=== PATIENT | male | born 1995 ===

== ENCOUNTER 2023-01-30 12:04 | Outpatient (REF) | payer MEDICAID, SELFPAY ==
[2023-01-30 13:50] LABS: Estimated Average Glucose 103 mg/dL; Hemoglobin A1c % 5.2 % (<6.0)
[2023-01-30 14:20] LABS: Anion Gap 13 (12-20); Blood Urea Nitrogen 11 mg/dL (9-16); Calcium 10.1 mg/dL (8.4-10.2); Carbon Dioxide 26 mmol/L (22-29); Chloride 106 mmol/L (96-108); Estimated Glomerular Filt Rate > 60; Glucose Random 91 mg/dL (60-115); Potassium 4.3 mmol/L (3.3-5.1); Sodium 141 mmol/L (135-145)
[2023-01-30 14:29] LABS: Syphilis Screen Nonreactive (Nonreactive)
[2023-01-31 08:02] LABS: HIV AB/AG Nonreactive (Nonreactive); HIV Num 1 0.05 S/CO (0.00-0.99); ~HepC Num1 0.28 S/CO (0.00-0.79); ~Hepatitis C Antibody Nonreactive (Nonreactive)
== END 2023-01-30 12:05 | disposition home or self-care (01) ==
LOC: HO.HHCL 12:04
PROVIDERS: Visit Provider Emergency Medicine
DX: Z11.3 Encounter for screening for infections with a predominantly sexual mode of transmission (principal); Z83.3 Family history of diabetes mellitus; Z11.4 Encounter for screening for human immunodeficiency virus [HIV]
CPT/HCPCS: 36415; 80048; 83036; 86780; 86803; 87389

== ENCOUNTER 2024-03-08 11:27 | Outpatient (REF) | payer MEDICAID, SELFPAY ==
[2024-03-08 13:04] LABS: MANUAL DIFF FLAG NO
[2024-03-08 13:11] LABS: Basophils Percent Auto 0.4 % (0-2); Eosinophils Absolute Auto 0.2 X10*3/uL (0.0-0.4); Eosinophils Percent Auto 2.3 % (0-4); Hematocrit 47.6 % (42.0-52.0); Hemoglobin 15.6 g/dl (14.0-18.0); Imm Gran Abs Auto 0.03 X10*3/uL (0.00-0.03); Imm Gran Pct Auto 0.4 % (0.0-0.4); Lymphocytes Absolute Auto 2.9 X10*3/uL (1.2-4.9); Lymphocytes Percent Auto 39.6 % (20-40); Mean Corpuscular HGB Conc 32.8 g/dl (31.0-36.0); Mean Corpuscular Hemoglobin 27.8 pg (27.0-33.0); Mean Corpuscular Volume 84.7 fL (80.0-98.0); Mean Platelet Volume 10.8 fL (9.4-12.4); Monocytes Absolute Auto 0.7 X10*3/uL (0.1-1.2); Monocytes Percent Auto 8.8 % (2-11); Neutrophils Absolute Auto 3.6 x10*3/uL (2.0-8.3); Neutrophils Percent Auto 48.5 % (45-73); Platelet Count 245 X10*3/uL (160-400); Red Blood Count 5.62 X10*6/uL (4.60-5.80); Red Cell Distribution Width 12.2 % (11.0-16.0); White Blood Count 7.4 X10*3/uL (4.8-10.8)
[2024-03-08 13:28] LABS: Anion Gap 10 (12-20); Blood Urea Nitrogen 9 mg/dL (9-16); Calcium 9.7 mg/dL (8.4-10.2); Carbon Dioxide 25 mmol/L (22-29); Chloride 108 mmol/L (96-108); Estimated Glomerular Filt Rate > 60; Glucose Random 90 mg/dL (60-115); Potassium 3.9 mmol/L (3.3-5.1); Sodium 139 mmol/L (135-145)
[2024-03-08 13:45] LABS: Estimated Average Glucose 111 mg/dL; Hemoglobin A1C 138.9572 umol/L; Hemoglobin A1c % 5.5 % (<6.0); Total Hemoglobin (HGBA1C) 3819.5404 umol/L
[2024-03-08 14:29] LABS: CT PCR NOT DETECTED (Not Detect.); NG PCR NOT DETECTED (Not Detect.)
[2024-03-09 04:31] LABS: HIV AB/AG Nonreactive (Nonreactive); HIV Num 1 0.05 S/CO (0.00-0.99); ~HepC Num1 0.25 S/CO (0.00-0.79); ~Hepatitis C Antibody Nonreactive (Nonreactive)
[2024-03-14 15:24] LABS: RPR Rapid Plasma Reagin NON-REACTIVE (NON-REACTIVE)
== END 2024-03-08 11:28 | disposition home or self-care (01) ==
LOC: HO.HHCL 11:27
PROVIDERS: Visit Provider Nurse Practitioner Family
DX: Z20.2 Contact with and (suspected) exposure to infections with a predominantly sexual mode of transmission (principal); E66.9 Obesity, unspecified
CPT/HCPCS: 80048; 83036; 85025; 86592; 86803; 87389; 87491; 87591

== ENCOUNTER 2024-07-01 20:32 | Inpatient (IN) | payer MEDICAID, OTHER, SELFPAY ==
--- NOTE | ~2024-07-01 | US_ITS ---
EXAMINATION: US SCROTUM CLINICAL INFORMATION: Right testicular pain.. COMPARISON: None available. TECHNIQUE: A sonogram of the scrotum was performed assessing zaman-scale appearance and color Doppler flow. Spectral Doppler analysis of the arterial and venous flow were performed in the testes bilaterally. FINDINGS: RIGHT: Right testicle measures 4.6 x 2.3 x 2.8 cm, volume 15.6 mL. No focal testicular parenchymal lesions are visualized. There are innumerable tiny punctate calcifications in the right testis, meeting criteria for microlithiasis. Spectral Doppler analysis of the arterial and venous flow is normal in the right testis. Right epididymal head is normal in size. No right hydrocele or varicocele is seen. Right epididymal Doppler flow is normal. LEFT: Left testicle measures 4.2 x 1.9 x 3.0 cm, volume 12.2 mL. No focal testicular parenchymal lesions are visualized. There are innumerable tiny punctate calcifications in the left testis, meeting criteria for microlithiasis. Spectral Doppler analysis of the arterial and venous flow is normal in the left testis. Left epididymal head is normal in size. No left hydrocele or varicocele is seen. Left epididymal Doppler flow is normal. US/US scrotum IMPRESSION: 1. Testicular microlithiasis identified bilaterally. 2. Otherwise normal bilateral testicular ultrasound. Electronically signed by: Chicho Montez MD 07/10/2024 04:34 PM EDT
--- NOTE | ~2024-07-01 | US_ITS ---
EXAMINATION: US SCROTUM CLINICAL INFORMATION: Right testicular pain.. COMPARISON: None available. TECHNIQUE: A sonogram of the scrotum was performed assessing zaman-scale appearance and color Doppler flow. Spectral Doppler analysis of the arterial and venous flow were performed in the testes bilaterally. FINDINGS: RIGHT: Right testicle measures 4.6 x 2.3 x 2.8 cm, volume 15.6 mL. No focal testicular parenchymal lesions are visualized. There are innumerable tiny punctate calcifications in the right testis, meeting criteria for microlithiasis. Spectral Doppler analysis of the arterial and venous flow is normal in the right testis. Right epididymal head is normal in size. No right hydrocele or varicocele is seen. Right epididymal Doppler flow is normal. LEFT: Left testicle measures 4.2 x 1.9 x 3.0 cm, volume 12.2 mL. No focal testicular parenchymal lesions are visualized. There are innumerable tiny punctate calcifications in the left testis, meeting criteria for microlithiasis. Spectral Doppler analysis of the arterial and venous flow is normal in the left testis. Left epididymal head is normal in size. No left hydrocele or varicocele is seen. Left epididymal Doppler flow is normal. US/US scrotum doppler IMPRESSION: 1. Testicular microlithiasis identified bilaterally. 2. Otherwise normal bilateral testicular ultrasound. Electronically signed by: Chicho Montez MD 07/10/2024 04:34 PM EDT
[2024-07-01 20:50] VITALS: BP 180/90; PULSE 122; O2SAT 99
[2024-07-01 20:57] VITALS: BP 166/104; PULSE 117; RESP 16; TEMP 36.7; O2SAT 97
--- NOTE | 2024-07-01 21:00 | ED.PSYCH ---
HPI - Psych General Chief Complaint: Psychiatric Symptoms Stated Complaint: Hallucinating not taking med hx depression anxiety Time Seen by Provider: 07/01/24 20:53 Source: patient and EMS Mode of arrival: EMS Limitations: no limitations History of Present Illness ED Provider: YING MERCADO Narrative: 28 yo male with PMH of schizophrenia not on any medications who reports he is very scared and paranoid and that someone through a game online is out to get him. He admits he doesn't know who they are and isn't sure if it is real. He has not taken his escitalopram in 1 week though it is just 5mg and he denies being on any antipsychotics. He has no SI/HI. He states he is scared and only has god to rely on. He denies any drug use. MD complaint: hallucinations Onset (ago): week(s) Duration: intermittent History of same: Yes Relieving factors: none Exacerbating factors: other Context: not taking psychiatric medications Associated psychiatric symptoms: auditory hallucinations and delusions Associated symptoms: denies other symptoms Treatments prior to arrival: none Related Data Home Medications ?Medication ?Instructions ?Recorded ?Confirmed albuterol sulfate 90 mcg/actuation 1 puff inhalation Q6H PRN wheezing 07/01/24 07/01/24 aerosol inhaler (Ventolin HFA) escitalopram oxalate 5 mg tablet 5 mg PO DAILY 07/01/24 07/01/24 Allergies Allergy/AdvReac Type Severity Reaction Status Date / Time shellfish derived [shellfish] Allergy Anaphylaxis Verified 07/01/24 21:16 Review of Systems Review of Systems: Constitutional : No Fever, No Chills ENT/Mouth : No Ear Pain, No Nasal Congestion, No sore throat Eyes: No Eye Pain, No Swelling, No Redness Cardiovascular : No Chest Pain, No SOB Respiratory : No Cough, No Sputum, No Dyspnea Gastrointestinal : No Nausea, No Vomiting, No Diarrhea, No Hematochezia, No Melena Genitourinary : No Dysuria, No Urinary Frequency, No Hematuria Musculoskeletal : No Myalgias Skin : No Skin Lesions, No rash Neuro : No Weakness, No Numbness, No Paresthesias, No Dizziness, No Headache Psych : positive Anxiety, no Depression, no SI/HI, pos AH Heme/Lymph: No Lymphadenopathy Endocrine : No Polyuria, No Polydipsia All other systems reviewed and are negative [facility] Past Medical History Attestation statement: The following information was validated with the patient. Source: old records reviewed Medical History Schizophrenia Social History Social History Household Members: Other Household Members Other:: Mom [facility] Do you presently have visiting nurse or other home services: No Alcohol intake: current Alcohol intake frequency: a few times a week Alcohol type: beer Patient Tobacco Use Status: Never used Tobacco Smoked in Last 30 Days: No e-Cigarette/Vaping Use: Former Use Frequency of e-Cigarette/Vaping Use: stopped two years ago Patient Interested in Nicotine Replacement: No Use of substances other than those prescribed or required for medical reasons: Yes Substance Use Type: Marijuana Substance Use Frequency: Daily Last Used Substance: Just Prior to Admission Currently Displaying Signs/Symptoms of Drug Intoxication Withdrawal: No Do you feel safe in your current relationship?: No Current Relationship Is there a partner from a previous relationship who is making you feel unsafe now?: No Are you made to feel afraid or neglected: Yes (Pt states people online are threatening his life. Police think is delusion) Advance Directives: No Advance Directives Information Provided: No Do you have thoughts of harming others: None Do you have a plan to hurt others: No Plan Recently lost weight without trying: No Eating poorly because of decreased appetite: No Nutrition Risks: No Nutritional Risk Physical Exam Vital Signs: Vital Signs: Last Vital Signs Temp 97.3 F 07/02/24 19:39 Pulse 96 07/02/24 19:39 Resp 16 07/02/24 19:39 BP 146/88 H 07/02/24 19:39 Pulse Ox 97 07/02/24 19:39 O2 Del Method Room Air 07/02/24 19:39 BMI result Body Mass Index 34.9 Appearance: Alert. Oriented X3. No acute distress. Eyes: Pupils equal, round and reactive to light. ENT: Pharynx normal. Neck: Normal inspection. Neck supple. CVS: Normal heart rate and rhythm. Pulses normal. Respiratory: No respiratory distress. Breath sounds normal. Abdomen: Soft and nontender. Skin: Skin warm and dry. Normal skin color. Normal skin turgor. Extremities: No lower extremity edema. No calf ttp Neuro: Oriented X 3. No motor deficit. No sensory deficit. CN2-12 intact Course Course Course Narrative: Time: 06:36 Date: 07/02/24 Provider: Aury Hernandez, DO Patient in physician observation for psychiatric evaluation.? No acute events reported overnight. No current complaints. VS - HR slightly elevated and BP.? Patient is in bed search status. Will continue to monitor. Reevaluation(s) Reevaluation #1: Time: 16:48 Date: 07/02/24 Provider: Aury Hernandez DO Physician observation ended at 1648. Patient to be admitted as inpatient to psychiatry. Medications Administered Generic Name Dose Route Start Last Admin Trade Name Freq PRN Reason Stop Dose Admin Acetaminophen 650 mg 07/02/24 15:53 07/03/24 08:54 Acetaminophen 325 Mg Tablet PO 650 mg Q6H PRN Administration Headache/Pain, Scale 1-10 Escitalopram Oxalate 5 mg 07/03/24 09:00 07/03/24 08:54 Escitalopram Oxalate 5 Mg Tablet PO 5 mg DAILY CHRISTIANNE Administration Hydroxyzine HCl 25 mg 07/02/24 15:53 07/03/24 08:54 Hydroxyzine Hcl 25 Mg Tablet PO 25 mg Q6H PRN Administration mild anxiety Discontinued Medications Generic Name Dose Route Start Last Admin Trade Name Freq PRN Reason Stop Dose Admin Olanzapine 10 mg 07/02/24 21:00 07/03/24 08:54 Olanzapine 10 Mg Tablet PO 10 mg BID CHRISTIANNE Administration Medical Decision Making Medical Decision Making [facility] Narrative: 28 yo male with PMH of schizophrenia here with c/o AH he denies drug use and denies trauma at this time will obtain labs and CARE team consult. He is calm and cooperative. He has no SI/HI. Suspect med non compliance as his issue Differential Diagnosis Differential Diagnoses: The differential diagnosis associated with the presentation includes schizophrenia, med non compliance, AH, delusions Admission/Observation Consideration of admission/observation: Escalation of care including admission/observation considered physician observation started at 934pm pending CARE team Consult Healthcare Provider Management of the patient was discussed with: Behavioral Health Provider Lab Data [facility] Lab Attestation statement: I reviewed the patient's lab results. suspect LFTS due to fatty liver he has no abdominal pain bili normal 07/01/24 21:31 07/01/24 21:31 Labs: Lab Results 07/01/24 07/01/24 Range/Units 21:31 22:59 WBC 11.7 H (4.8-10.8) X10*3/uL RBC 5.35 (4.60-5.80) X10*6/uL Hgb 14.9 (14.0-18.0) g/dl Hct 45.0 (42.0-52.0) % MCV 84.1 (80.0-98.0) fL MCH 27.9 (27.0-33.0) pg MCHC 33.1 (31.0-36.0) g/dl RDW 12.5 (11.0-16.0) % Plt Count 236 (160-400) X10*3/uL MPV 9.6 (9.4-12.4) fL Immature Gran % (Auto) 0.5 H (0.0-0.4) % Neut % (Auto) 65.2 (45-73) % Lymph % (Auto) 24.1 (20-40) % [place] % (Auto) 7.8 (2-11) % Eos % (Auto) 2.1 (0-4) % Baso % (Auto) 0.3 (0-2) % Lymph # (Auto) 2.8 (1.2-4.9) X10*3/uL [place] # (Auto) 0.9 (0.1-1.2) X10*3/uL Eos # (Auto) 0.3 (0.0-0.4) X10*3/uL Baso # (Auto) 0.0 (0.0-0.2) X10*3/uL Abs Immat Gran (auto) 0.06 H (0.00-0.03) X10*3/uL Absolute Neuts (auto) 7.6 (2.0-8.3) x10*3/uL Absolute Nucleated RBC 0.000 (0.0-0.012) X10*3/uL Nucleated RBC % (auto) 0.0 (0.0-0.2) /100WBC Sodium 141 (135-145) mmol/L Potassium 4.3 (3.3-5.1) mmol/L Chloride 105 (96-108) mmol/L Carbon Dioxide 23 (22-29) mmol/L Anion Gap 17 (12-20) BUN 11 (9-16) mg/dL Creatinine 0.98 (0.5-1.4) mg/dL Estim Creat Clear Calc 146.2 Estimated GFR > 60 Random Glucose 140 H (60-115) mg/dL Calcium 9.7 (8.4-10.2) mg/dL Total Bilirubin 0.4 (0.0-1.0) mg/dL AST 54 H (5-37) U/L ALT 115 H (0-40) U/L Alkaline Phosphatase 106 (39-117) U/L Total Protein 7.6 (6.5-8.0) g/dL Albumin 4.7 (3.5-5.0) g/dL Urine Color Dark Yellow Urine Appearance Turbid Urine pH 5.5 (5.0-9.0) Ur Specific [place] >= 1.030 H (1.005-1.025) Urine Protein 100 (2+) H (Neg-Trace) mg/dL Urine Glucose (UA) Negative (Negative) mg/dL Urine Ketones Trace (Negative) mg/dL Urine Blood Negative (Negative) Urine Nitrite Negative (Negative) Ur Leukocyte Esterase Negative (Negative) Urine RBC 0-2 (0-2) /HPF Urine WBC 0-5 (0-5) /HPF Ur Squamous Epith Cells 0-2 (0-2) /HPF Urine Bacteria None Seen (None Seen) Hyaline Casts 3-5 (0-2) /LPF Urine Opiates Screen Not Detected (Not Detect) Ur Buprenorphine Scrn Not Detected (Not Detect) ng/mL Ur Oxycodone Screen Not Detected (Not Detect) ng/mL Urine Methadone Screen Not Detected (Not Detect) ng/mL Urine Fentanyl Screen Not Detected (Not Detect) Ur Barbiturates Screen Not Detected (Not Detect) Ur Phencyclidine Scrn Not Detected (Not Detect) Ur Amphetamines Screen Not Detected (Not Detect) U Benzodiazepines Scrn Not Detected (Not Detect) Urine Cocaine Screen Not Detected (Not Detect) U Marijuana (THC) Screen POSITIVE H (Not Detect) Ethyl Alcohol < 10 mg/dL Independent Historian Clinical information obtained from an independent historian. History obtained from or confirmed by: EMS External Record Review External record reviewed: Outpatient record Discharge Plan Discharge Clinical Impression: Chronic schizophrenia Patient Disposition: Admitted As Inpatient Interventions: Admission Worksheet (ED) Last Done: 07/02/24 16:48 Discharge Date/Time: 07/02/24 16:48
[2024-07-01 21:14] VITALS: BP 165/83; PULSE 103; RESP 16; RESP 20; TEMP 36.7; O2SAT 98; BMI 34.9
[2024-07-01 21:35] VITALS: BP 156/86; PULSE 110; RESP 18; TEMP 36.6; O2SAT 97
[2024-07-01 21:35] LABS: MANUAL DIFF FLAG NO
[2024-07-01 21:37] LABS: Basophils Percent Auto 0.3 % (0-2); Eosinophils Absolute Auto 0.3 X10*3/uL (0.0-0.4); Eosinophils Percent Auto 2.1 % (0-4); Hemoglobin 14.9 g/dl (14.0-18.0); Imm Gran Abs Auto 0.06 X10*3/uL (0.00-0.03); Imm Gran Pct Auto 0.5 % (0.0-0.4); Lymphocytes Absolute Auto 2.8 X10*3/uL (1.2-4.9); Lymphocytes Percent Auto 24.1 % (20-40); Mean Corpuscular HGB Conc 33.1 g/dl (31.0-36.0); Mean Corpuscular Hemoglobin 27.9 pg (27.0-33.0); Mean Corpuscular Volume 84.1 fL (80.0-98.0); Mean Platelet Volume 9.6 fL (9.4-12.4); Monocytes Absolute Auto 0.9 X10*3/uL (0.1-1.2); Monocytes Percent Auto 7.8 % (2-11); Neutrophils Absolute Auto 7.6 x10*3/uL (2.0-8.3); Neutrophils Percent Auto 65.2 % (45-73); Platelet Count 236 X10*3/uL (160-400); Red Blood Count 5.35 X10*6/uL (4.60-5.80); Red Cell Distribution Width 12.5 % (11.0-16.0); White Blood Count 11.7 X10*3/uL (4.8-10.8)
--- NOTE | 2024-07-01 21:37 | MHC.EDTECH ---
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
[2024-07-01 21:50] LABS: Ethanol < 10 mg/dL
[2024-07-01 21:53] LABS: Alanine Aminotransferase 115 U/L (0-40); Albumin Level 4.7 g/dL (3.5-5.0); Alkaline Phosphatase 106 U/L (39-117); Anion Gap 17 (12-20); Aspartate Amino Transferase 54 U/L (5-37); Bilirubin Total 0.4 mg/dL (0.0-1.0); Blood Urea Nitrogen 11 mg/dL (9-16); Calcium 9.7 mg/dL (8.4-10.2); Carbon Dioxide 23 mmol/L (22-29); Chloride 105 mmol/L (96-108); Creatinine Clr Calc Pharmacy 146.2; Estimated Glomerular Filt Rate > 60; Glucose Random 140 mg/dL (60-115); Potassium 4.3 mmol/L (3.3-5.1); Sodium 141 mmol/L (135-145); Total Protein 7.6 g/dL (6.5-8.0)
--- NOTE | 2024-07-01 22:05 | MHC.EDTECH ---
Patient was moved to Pod at 2205 ,And Pt belongings are locked up in pod locker # 4 .
[2024-07-01 23:21] LABS: Amphetamine Screen Urine Not Detected (Not Detect); Barbiturates, Urine Not Detected (Not Detect); Benzodiazepines Screen Urine Not Detected (Not Detect); Buprenorphine Scr Not Detected (Not Detect); Cannabinoid Screen Urine POSITIVE (Not Detect); Cocaine Screen Urine Not Detected (Not Detect); Fentanyl, urine Not Detected (Not Detect); Methadone Screen, Urine Not Detected (Not Detect); Opiate Screen Urine Not Detected (Not Detect); Oxycodone Screen Urine Not Detected (Not Detect); Phencyclidine Screen Urine Not Detected (Not Detect)
--- NOTE | 2024-07-02 | ECG_ITS ---
Test Reason : ro qtc Blood Pressure : */* mmHG Vent. Rate : 79 BPM Atrial Rate : 79 BPM P-R Int : 130 ms QRS Dur : 104 ms QT Int : 374 ms P-R-T Axes : -1 17 26 degrees QTcB Int : 428 ms Normal sinus rhythm Nonspecific T wave abnormality Abnormal ECG No previous ECGs available Referred By: Kyle Lacey Electronically Signed By: Tyrell Reece
--- NOTE | 2024-07-02 06:10 | PC.NURSE ---
Patient slept through the night, no distress observed/reported, med rec completed/off his Medication since last February, 15 minutes safety check, no behavior and safety concerns, disposition per care team is sec-12 inpatient bed search, will continue to monitor.
[2024-07-02 06:29] VITALS: BP 137/93; PULSE 93; RESP 16; TEMP 36.3; O2SAT 99
--- NOTE | 2024-07-02 07:31 | PC.NURSE ---
ASSUMED CARE OF PT AT 0645. PT IS WATCHING TV IN THE COMMON AREA. NO ACUTE CONCERNS AT THIS TIME. CONTINUE [facility] BEDSEARCH.
[2024-07-02 08:25] LABS: Appearance Urine Turbid; Color Urine Dark Yellow; Glucose Urine UA Negative (Negative); Leukocyte Esterase Urine Negative (Negative); Nitrite Urine Negative (Negative); PH 5.5 (5.0-9.0); Specific Gravity - Urine >= 1.030 (1.005-1.025); UMIC TRIGGER UA YES; Urine Blood Negative (Negative); Urine Ketones Trace mg/dL (Negative); Urine Protein 100 (2+) mg/dL (Neg-Trace)
[2024-07-02 08:29] LABS: Bacteria Urine None Seen (None Seen); RBC Urine 0-2 /HPF (0-2); Squamous Epithelial Cell Urine 0-2 /HPF (0-2); WBC Urine 0-5 /HPF (0-5)
[2024-07-02 15:32] VITALS: BP 155/93; PULSE 93; RESP 14; TEMP 36.6; O2SAT 98
[2024-07-02 16:54] VITALS: BMI 35.3
[2024-07-02 17:00] VITALS: BP 144/87; PULSE 91; RESP 18; TEMP 36.8; O2SAT 97
[2024-07-02] MEDS: hydrOXYzine HCL 25 MG TABLET PO (18:46)
--- NOTE | 2024-07-02 19:01 | PC.ADMIT ---
Huy is a 28 yr old male, admitting to M5, on a CV, for paranoia & hallucinations. Pt is A&Ox4, friendly, engaged and cooperative with the admission process. He smokes marijuana & reported that his paranoia has gotten worse after smoking.? Huy endorses AH but states that sometimes he?s unsure if it?s an actual hallucination.? He lives at home with his mother.? He admitted to past SI & suicide attempts but currently denies SI/HI/VH. Huy is able to contract for safety & report to staff if feeling unsafe. Huy is interested in establishing a new PCP & psych providers.? He wants to get on the correct meds to help him. During intake Huy discussed feeling unsafe due to threats made against him from people he met online.? He states the police didn?t take him seriously.? Unable to determine if these are paranoid delusions. Skin check is unremarkable, with exception of eczema on bilateral dorsal feet & right lateral hand. Huy was oriented to the unit & placed on 15 min safety checks.? He is seen socializing & playing cards with peers.
[2024-07-02 19:39] VITALS: BP 146/88; PULSE 96; RESP 16; TEMP 36.3; O2SAT 97
[2024-07-03] MEDS: Escitalopram Oxalate 5 MG TABLET PO (08:54)
[2024-07-03] MEDS: Acetaminophen 325 MG TABLET 650 MG PO (08:54)
[2024-07-03] MEDS: hydrOXYzine HCL 25 MG TABLET PO (08:54)
[2024-07-03] MEDS: OLANZapine 10 MG TABLET PO (08:54)
--- NOTE | 2024-07-03 10:01 | HO.PSYADMNOT ---
HPI Date of Service: 07/03/24 Chief Complaint: Schizophrenia, Cannabis use disorder Sources of Information: patient interviewed, chart reviewed and crisis/core team assessment reviewed Additional Sources of Information: Seen 145pm HPI Subjective Notes: Mariscal Warning and Conditional Voluntary Healthcare Proxy: No Guardianship: No Medical Problems Affecting Mental Status: Yes (HTN,Right Testicle Pain) Narrative: 28 yo male, hx of schizophrenia, to ER with EMS. Mother had called for help as pt was exhibiting an increase in paranoia/perceptual alterations. Pt reports using cannabis prior to sx. States someone is making threats to kill him, but was not sure it was reality. States he creates stories, connects it to past events, making him feel as if he is in a movie, then reality becomes blurred. Pt reports being off medications. Met with pt and Lauren Mukherjee LCSW. Pt reports he does liberty on line with peers from [place] and has felt some threat from them as he feels he is more skilled and is challenging them. 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 Tells crisis that his words often get him into trouble, people are offended, they become upset and make threats. This causes fear and he stays to himself. Pt reports a hx of using Escitalopram 5 mg, given by PCP with [facility] Past Psychiatric History: IP: Several OP: PCP at [facility] Hx of multiple suicide attempts via OD age 14 (grandfather ), hanging 2020 and 2022 Hx paranoia, perceptual alterations which increases with cannabis use Hx Risperdal, vistaril Medical Evaluation Reviewed: Yes [facility] Medical History (Updated 07/03/24 @ 17:33 by Shannan Joy, HANDY) Cannabis dependence Schizophrenia Narrative: HTN Reports Right Testicle Pain Social History: Born in [place], moved to [place] at age 4 with his mom. 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 Trauma History: Age 14, of grandfather Diagnostics Vital Signs (24Hr): Vital Signs - 24 hr 07/02/24 15:32 07/02/24 17:00 07/02/24 19:39 Temperature 97.9 F 98.2 F 97.3 F Pulse Rate 93 91 96 Respiratory Rate 14 18 16 Blood Pressure 155/93 H 144/87 H 146/88 H Pulse Oximetry 98 97 97 Oxygen Delivery Method Room Air Room Air Room Air BMI result Body Mass Index 35.3 Labs 07/01/24 21:31 07/01/24 21:31 Labs: Laboratory Results - last 48 hr 07/01/24 07/01/24 21:31 22:59 WBC 11.7 H RBC 5.35 Hgb 14.9 Hct 45.0 MCV 84.1 MCH 27.9 MCHC 33.1 RDW 12.5 Plt Count 236 MPV 9.6 Immature Gran % (Auto) 0.5 H Neut % (Auto) 65.2 Lymph % (Auto) 24.1 [place] % (Auto) 7.8 Eos % (Auto) 2.1 Baso % (Auto) 0.3 Lymph # (Auto) 2.8 [place] # (Auto) 0.9 Eos # (Auto) 0.3 Baso # (Auto) 0.0 Abs Immat Gran (auto) 0.06 H Absolute Neuts (auto) 7.6 Absolute Nucleated RBC 0.000 Nucleated RBC % (auto) 0.0 Sodium 141 Potassium 4.3 Chloride 105 Carbon Dioxide 23 Anion Gap 17 BUN 11 Creatinine 0.98 Estim Creat Clear Calc 146.2 Estimated GFR > 60 Random Glucose 140 H Calcium 9.7 Total Bilirubin 0.4 AST 54 H ALT 115 H Alkaline Phosphatase 106 Total Protein 7.6 Albumin 4.7 Urine Color Dark Yellow Urine Appearance Turbid Urine pH 5.5 Ur Specific [place] >= 1.030 H Urine Protein 100 (2+) H Urine Glucose (UA) Negative Urine Ketones Trace Urine Blood Negative Urine Nitrite Negative Ur Leukocyte Esterase Negative Urine RBC 0-2 Urine WBC 0-5 Ur Squamous Epith Cells 0-2 Urine Bacteria None Seen Hyaline Casts 3-5 Urine Opiates Screen Not Detected Ur Buprenorphine Scrn Not Detected Ur Oxycodone Screen Not Detected Urine Methadone Screen Not Detected Urine Fentanyl Screen Not Detected Ur Barbiturates Screen Not Detected Ur Phencyclidine Scrn Not Detected Ur Amphetamines Screen Not Detected U Benzodiazepines Scrn Not Detected Urine Cocaine Screen Not Detected U Marijuana (THC) Screen POSITIVE H Ethyl Alcohol < 10 Meds/Allergies Meds Home Medications ?Medication ?Instructions ?Recorded ?Confirmed ?Type albuterol sulfate 90 mcg/actuation 1 puff inhalation Q6H PRN wheezing 07/01/24 07/01/24 History aerosol inhaler (Ventolin HFA) escitalopram oxalate 5 mg tablet 5 mg PO DAILY 07/01/24 07/01/24 History Allergies Allergies Allergy/AdvReac Type Severity Reaction Status Date / Time shellfish derived [shellfish] Allergy Anaphylaxis Verified 07/01/24 21:16 Mental Status Exam Mental Status Exam Patient Appearance: Appropriate Patient Orientation: Person, Place, Time and Situation Level of Consciousness: Alert Patient Behavior: Appropriate, Guarded, Talkative, Cooperative, Anxious, Fearful, Distractible and Good Eye Contact Mood Description: Blunted Affect Description: Blunted Patient Cognition Impaired: No Ability to Follow Directions: Good Speech Pattern: Spontaneous Speech Memory Description: Episodic Impaired Hallucinations: Auditory Delusions: Paranoid Ideation Perceptual Disturbances: Depersonalization and Derealization Thought Process: Distracted and Rumination Thought Content: positive for Spruce, positive for Circumstantial, positive for Perseveration and positive for Tangential Depressive Symptoms: Increased Anxiety and Diff. Making Decisions Judgement: Poor Assessment & Plan Assessment & Plan (1) Chronic schizophrenia: Status: Acute Code(s): F20.9 - Schizophrenia, unspecified (2) Cannabis dependence: Status: Acute Code(s): F12.20 - Cannabis dependence, uncomplicated Plan Admit to M5, CV, 15 minute checks Diagnostics as needed Encourage milieu Collateral Contact Change Olanzapine to Risperdal Continue Lexapro Discharge/Aftercare planning. Patient educated on: medication risk/benefits Reason for continued inpatient stay Substantial Risk for: rapid decompensation Statement Statement: I have reviewed the history and physical and performed a pertinent examination on my patient. No changes have occurred unless specified. If the History and Physical was not performed prior to admission, the Hospitalist's service will be consulted for completing the admission physical. Time Spent With Patient Time: Total time managing care of this patient today ____ minutes.
[2024-07-03 19:43] VITALS: BP 116/64; PULSE 52; RESP 16; TEMP 36.8; O2SAT 97
[2024-07-03] MEDS: risperiDONE 1 MG TABLET PO (20:42)
--- NOTE | 2024-07-03 22:11 | HO.PM.IMCN ---
History of Present Illness Data of Consult Service Date: 07/03/24 Requesting physician: Shannan Joy Primary Care Provider: None Physician HPI Reason for consult: Hypertension and testicular pain Patient is a 28-year-old male with past medical history of eczema, asthma and anaphylaxis with shellfish as well as allergies to pollen, cats, dogs and marijuana use daily was seen in the psychiatric unit for concerns regarding hypertension and testicular pain. Patient reports coming into the hospital from home after his mother called 911 because patient was experiencing increased paranoid thoughts and perceptual alterations. Patient had used marijuana prior to having the symptoms but patient truly believes he has schizophrenia. Patient stated he experienced some testicular ?pain ?while in the ED and this has since resolved. A composition mixer was requested and a testicular exam was performed. There was no evidence of torsion, hydrocele, swelling and both testes are descended properly with no nodules or skin changes identified. Patient denies any dysuria, frequency or hesitancy with urination. Patient has been sexually active but denies any recent STDs. Patient has a mild leukocytosis as of July 01. In addition patient's blood pressure was recorded as 148/88 and is currently 116/64. Patient has not been on antihypertensives in the past. Patient denies any headaches, chest pain, shortness of breath at rest or with exertion, visual changes and there are currently no indication to start antihypertensives at this time. Allergies were also reviewed and patient does state he gets anaphylaxis when eating shellfish and has never carried an EpiPen or required use of an EpiPen. Per nursing, EpiPens are located on the floor and can be used emergently if needed. Patient reports allergic rhinitis when exposed to pollen, cats, dogs and does not take Claritin or Zyrtec daily. Patient also reports eczema especially on the top of both feet and patient has had this for some time. Patient has tried topical treatments in the past, has seen an delicatessen clerk and has not had any successful treatment so far. Patient is willing to try hydrocortisone cream topically. Review of Systems Review of Systems: Patient currently denies any chest pain, shortness of breath at rest or with exertion, abdominal pain, nausea, vomiting, constipation, diarrhea, headache or visual changes. Patient does wear glasses. Patient does have issues with eczema on both feet resulting in intermittent itching only. Patient currently denies any testicular pain. Yes all other systems are reviewed and are negative PMFSH Medical History (Updated 07/03/24 @ 22:22 by PREETHI Goode) Eczema Asthma Cannabis dependence Schizophrenia Cognitive capacity: Alert and orientated x3, patient cooperative with interview Functional capacity: independent ambulation Pertinent family history: Mother age 48 with history of hypertension, osteoarthritis, vertigo and cervical cancer with treatment Father age 43 with diabetes Social History Household Members: Other Household Members Other:: Mom Housing: Condominium Do you presently have visiting nurse or other home services: No Alcohol intake: current Alcohol intake frequency: a few times a week Alcohol type: beer Patient Tobacco Use Status: Never used Tobacco Smoked in Last 30 Days: No e-Cigarette/Vaping Use: Former Use Frequency of e-Cigarette/Vaping Use: stopped two years ago Patient Interested in Nicotine Replacement: No Use of substances other than those prescribed or required for medical reasons: Yes Substance Use Type: Marijuana Substance Use Frequency: Daily Last Used Substance: Just Prior to Admission Currently Displaying Signs/Symptoms of Drug Intoxication Withdrawal: No Do you feel safe in your current relationship?: No Current Relationship Is there a partner from a previous relationship who is making you feel unsafe now?: No Are you made to feel afraid or neglected: Yes (Pt states people online are threatening his life. Police think is delusion) Advance Directives: No Advance Directives Information Provided: No Do you have thoughts of harming others: None Do you have a plan to hurt others: No Plan Recently lost weight without trying: No Eating poorly because of decreased appetite: No Nutrition Risks: No Nutritional Risk Ebola Risk: Travel/Contact With Anyone From Affected Area/s: No Has Patient Experienced Ebola Symptoms: No Meds Allergies Allergy/AdvReac Type Severity Reaction Status Date / Time cat dander Allergy Intermediate Runny Nose Verified 07/03/24 22:30 dog dander Allergy Intermediate Runny Nose Verified 07/03/24 22:30 pollen extracts Allergy Intermediate Itchy Eyes Verified 07/03/24 22:30 shellfish derived [shellfish] Allergy Anaphylaxis Verified 07/01/24 21:16 Active Medications: Current Medications Acetaminophen (Acetaminophen 325 Mg Tablet) 650 mg PO Q6H PRN PRN Reason: Headache/Pain, Scale 1-10 Last Admin: 07/03/24 08:54 Dose: 650 mg Al Hydroxide/Mg Hydroxide (Magnesium Hydrox/Alum Hydrox 30 Ml Oral.Susp) 30 ml PO Q6H PRN PRN Reason: Heartburn/Nausea Albuterol Sulfate (Albuterol Sulfate 90 Mcg 8 Gm Inhaler) 1 puff INHALE Q6H PRN PRN Reason: wheezing Albuterol Sulfate (Albuterol Sulfate 90 Mcg 8 Gm Inhaler) 2 puff INHALE RQ6H PRN PRN Reason: Shortness of Breath/Wheezing Escitalopram Oxalate (Escitalopram Oxalate 5 Mg Tablet) 5 mg PO DAILY [facility] Last Admin: 07/03/24 08:54 Dose: 5 mg Hydroxyzine HCl (Hydroxyzine Hcl 25 Mg Tablet) 25 mg PO Q6H PRN PRN Reason: mild anxiety Last Admin: 07/03/24 08:54 Dose: 25 mg Lorazepam (Lorazepam 1 Mg Tablet) 2 mg PO Q4H PRN PRN Reason: anxiety/restlessness Magnesium Hydroxide (Milk Of Magnesia 30 Ml Oral.Susp) 30 ml PO DAILY PRN PRN Reason: Constipation Nicotine Polacrilex (Nicotine Polacrilex 2 Mg Gum) 4 mg BUCCAL Q2H PRN PRN Reason: Nicotine Cravings Olanzapine (Olanzapine 5 Mg Tablet) 5 mg PO Q4H PRN PRN Reason: agitation; psychosis Risperidone (Risperidone 1 Mg Tablet) 1 mg PO BID [facility] Last Admin: 07/03/24 20:42 Dose: 1 mg Trazodone HCl (Trazodone Hcl 50 Mg Tablet) 50 mg PO BEDTIME MRX1 PRN PRN Reason: Insomnia Home Medications ?Medication ?Instructions ?Recorded ?Confirmed ?Last Taken ?Type albuterol sulfate 90 mcg/actuation 1 puff inhalation Q6H PRN wheezing 07/01/24 07/01/24 Unknown History aerosol inhaler (Ventolin HFA) escitalopram oxalate 5 mg tablet 5 mg PO DAILY 07/01/24 07/01/24 Unknown History Physical Exam Vital Signs and Narrative: Vital Signs: Last Vital Signs Temp 98.2 F 07/03/24 19:43 Pulse 52 07/03/24 19:43 Resp 16 07/03/24 19:43 BP 116/64 07/03/24 19:43 Pulse Ox 97 07/03/24 19:43 O2 Del Method Room Air 07/03/24 19:43 BMI result Body Mass Index 35.3 Alert and orientated X3, able to give adequate hx Neuro: CN II-X11 intact, no deficits, visual acuity intact EYES: PERRLA, EOM intact ENT: hearing intact, no issues with swallowing, uvula midline, lips moist, nares patent no epistaxis Cardiac: S1 S2 RRR, no murmur, no JVD, no edema in Lower ext Pulmonary: lungs clear to ausculation B Abdominal: BS active in all 4 quadrants, no guarding, tenderness, rebounding MSK: strength 5/5 upper and lower extremities : no CVA tenderness no bladder distension, scrotum normal in size, testes fuly distended B, no swelling or warmth or fluid retention noted, no evidence of torsion or plapable cord. No evidence of inguinal hernia B Extremities: no edema in lower extremities, PT and DP pulses palpable +2 Psych: mood stable, judgement and insight fair Skin: eczema plaques top of both feet Results Labs 07/01/24 21:31 07/01/24 21:31 ECG Prior ECG tracings: not available for review Assessment and Plan (1) Eczema: Status: Acute Plan Patient is a 28-year-old male with past medical history of eczema, asthma and anaphylaxis with shellfish as well as allergies to pollen, cats, dogs and marijuana use daily was seen on the psychiatric unit for concerns of hypertension and testicular pain. Blood pressure has normalized to 116/64 and examination and interview with patient notes resolve of previous testicular pain experienced in the emergency department. Exam also reassuring. Hypertension -Blood pressure has stabilized to 116/64, monitor Q shift -No intervention required at this time -Follow-up with PCP in the outpatient setting Testicular pain, resolved on exam -UA with reflex ordered noting a mild leukocytosis of 11.7 on 07/01 -re-consult hospitalist if UA or culture are positive -recommend screen for chlamydia and gonorrhea via urine sample to rule out only, pt asymptomatic -testicular and scrotal exam reassuring, no indication for diagnostics at this time Transaminitis (mild) -repeat LFTs in 24-48 hours and monitor for resolve -avoid hepatotoxic medications Eczema, chronic -noted plaques on both feet and hydrocortisone 1% ordered b.i.d. -recommend outpatient follow-up with strategic advisor and/or delicatessen clerk Asthma -albuterol rescue inhaler ordered as needed -no indication for chest x-ray at this time Anaphylaxis to shellfish -EpiPens are located on the floor for emergent issues as needed -allergies also updated for environmental sources including pollen, cats and dogs Thank you for this consultation. Hospitalist group will sign off at this time. Please reconsult with any further concerns or need for further recommendations.
[2024-07-04 07:00] VITALS: BMI 35.4
[2024-07-04 08:00] VITALS: BP 123/63; PULSE 100; RESP 16; TEMP 36.4; O2SAT 99
[2024-07-04] MEDS: risperiDONE 1 MG TABLET PO (08:12)
[2024-07-04] MEDS: Escitalopram Oxalate 5 MG TABLET PO (08:12)
[2024-07-04 08:16] LABS: Estimated Average Glucose 111 mg/dL; Hemoglobin A1C 150.6074 umol/L; Hemoglobin A1c % 5.5 % (<6.0); Total Hemoglobin (HGBA1C) 4065.3459 umol/L
[2024-07-04 08:35] LABS: Cholesterol 195 mg/dL (<200); HDL Cholesterol 39 mg/dL (>40); LDL Cholesterol Calculated 128 mg/dL (<100); Magnesium 1.9 mg/dL (1.6-2.6); Triglycerides 144 mg/dL (<150)
[2024-07-04 08:51] LABS: Free T4 (Free Thyroxine) 1.06 ng/dL (0.71-1.85); Thyroid Stimulating Hormone 0.71 uIU/mL (0.32-4.0)
[2024-07-04 09:04] LABS: Folate 9.3 ng/mL (> or = 4.0); Vitamin B12 600 pg/mL (200-900)
--- NOTE | 2024-07-04 10:18 | P.PNPSI_ITS ---
Subjective Subjective Date of Service: 07/04/24 Reason For Visit: Schizophrenia, Cannabis use disorder Subjective Notes: Conditional Voluntary Healthcare Proxy: No Guardianship: No Medical Problems Affecting Mental Status: No Interim History: Pt reports he is doing better, however, mother visited and she reports he told her that he feels peers are plotting against him and reporting active AH, VH. Mother met with team-sx present and increasing since [id number]. 3 in pt stays with minimal improvement. Mother to go for guardianship-she has brought paperwork in for assistance She reports to team he requires much care and has only needed 3 hospitalizations since 2021 due to her efforts. Pt has not had a regime that has helped. Medication Compliance: Yes Side effects from medications: No Attending Groups: Intermittent Review of Systems Acute medical concerns: No Medical Review of Systems: unchanged Review of Systems Review of Systems Denies Mental Status Exam Mental Status Exam Patient Appearance: Appropriate Patient Orientation: Person, Place, Time and Situation Level of Consciousness: Alert Patient Behavior: Appropriate, Guarded, Talkative, Cooperative, Anxious, Fearful, Distractible and Good Eye Contact Mood Description: Blunted Affect Description: Blunted Patient Cognition Impaired: No Ability to Follow Directions: Good Speech Pattern: Spontaneous Speech Memory Description: Episodic Impaired Hallucinations: Auditory Delusions: Paranoid Ideation Perceptual Disturbances: Depersonalization and Derealization Thought Process: Distracted and Rumination Thought Content: positive for [place], positive for Circumstantial, positive for Perseveration and positive for Tangential Depressive Symptoms: Increased Anxiety and Diff. Making Decisions Judgement: Poor Diagnostics Vital Signs (24Hr): Vital Signs - 24 hr 07/03/24 19:43 07/04/24 08:00 Temperature 98.2 F 97.5 F Pulse Rate 52 100 Respiratory Rate 16 16 Blood Pressure 116/64 123/63 Pulse Oximetry 97 99 Oxygen Delivery Method Room Air Room Air BMI result Body Mass Index 35.3 Labs 07/01/24 21:31 07/01/24 21:31 Labs: Laboratory Results - last 48 hr 07/04/24 07/04/24 07:48 07:49 Estimat Average Glucose 111 Hemoglobin A1c % 5.5 Magnesium 1.9 Triglycerides 144 Cholesterol 195 LDL Cholesterol, Calc 128 H HDL Cholesterol 39 L Vitamin B12 600 Folate 9.3 TSH 0.71 Free T4 1.06 Medications Medications Current Medications Acetaminophen (Acetaminophen 325 Mg Tablet) 650 mg PO Q6H PRN PRN Reason: Headache/Pain, Scale 1-10 Last Admin: 07/03/24 08:54 Dose: 650 mg Al Hydroxide/Mg Hydroxide (Magnesium Hydrox/Alum Hydrox 30 Ml Oral.Susp) 30 ml PO Q6H PRN PRN Reason: Heartburn/Nausea Albuterol Sulfate (Albuterol Sulfate 90 Mcg 8 Gm Inhaler) 1 puff INHALE Q6H PRN PRN Reason: wheezing Albuterol Sulfate (Albuterol Sulfate 90 Mcg 8 Gm Inhaler) 2 puff INHALE RQ6H PRN PRN Reason: Shortness of Breath/Wheezing Escitalopram Oxalate (Escitalopram Oxalate 5 Mg Tablet) 5 mg PO DAILY [facility] Last Admin: 07/04/24 08:12 Dose: 5 mg Hydrocortisone (Hydrocortisone 1 % Cream 28.35 Gm Tube) 1 appl TOPICAL BID [facility]; Protocol Last Admin: 07/04/24 08:14 Dose: Not Given Hydroxyzine HCl (Hydroxyzine Hcl 25 Mg Tablet) 25 mg PO Q6H PRN PRN Reason: mild anxiety Last Admin: 07/03/24 08:54 Dose: 25 mg Lorazepam (Lorazepam 1 Mg Tablet) 2 mg PO Q4H PRN PRN Reason: anxiety/restlessness Magnesium Hydroxide (Milk Of Magnesia 30 Ml Oral.Susp) 30 ml PO DAILY PRN PRN Reason: Constipation Nicotine Polacrilex (Nicotine Polacrilex 2 Mg Gum) 4 mg BUCCAL Q2H PRN PRN Reason: Nicotine Cravings Olanzapine (Olanzapine 5 Mg Tablet) 5 mg PO Q4H PRN PRN Reason: agitation; psychosis Risperidone (Risperidone 1 Mg Tablet) 1 mg PO BID [facility] Last Admin: 07/04/24 08:12 Dose: 1 mg Trazodone HCl (Trazodone Hcl 50 Mg Tablet) 50 mg PO BEDTIME MRX1 PRN PRN Reason: Insomnia Allergies Allergies Allergy/AdvReac Type Severity Reaction Status Date / Time cat dander Allergy Intermediate Runny Nose Verified 07/03/24 22:30 dog dander Allergy Intermediate Runny Nose Verified 07/03/24 22:30 pollen extracts Allergy Intermediate Itchy Eyes Verified 07/03/24 22:30 shellfish derived [shellfish] Allergy Anaphylaxis Verified 07/01/24 21:16 Assessment & Plan Assessment & Plan (1) Eczema: Status: Acute Code(s): L30.9 - Dermatitis, unspecified Plan Patient is a 28-year-old male with past medical history of eczema, asthma and anaphylaxis with shellfish as well as allergies to pollen, cats, dogs and marijuana use daily was seen on the psychiatric unit for concerns of hypertension and testicular pain. Blood pressure has normalized to 116/64 and examination and interview with patient notes resolve of previous testicular pain experienced in the emergency department. Exam also reassuring. Hypertension -Blood pressure has stabilized to 116/64, monitor Q shift -No intervention required at this time -Follow-up with PCP in the outpatient setting Testicular pain, resolved on exam -UA with reflex ordered noting a mild leukocytosis of 11.7 on 07/01 -re-consult hospitalist if UA or culture are positive -recommend screen for chlamydia and gonorrhea via urine sample to rule out only, pt asymptomatic -testicular and scrotal exam reassuring, no indication for diagnostics at this time Transaminitis (mild) -repeat LFTs in 24-48 hours and monitor for resolve -avoid hepatotoxic medications Eczema, chronic -noted plaques on both feet and hydrocortisone 1% ordered b.i.d. -recommend outpatient follow-up with wardrobe specialist and/or heliarc welder Asthma -albuterol rescue inhaler ordered as needed -no indication for chest x-ray at this time Anaphylaxis to shellfish -EpiPens are located on the floor for emergent issues as needed -allergies also updated for environmental sources including pollen, cats and dogs Thank you for this consultation. Hospitalist group will sign off at this time. Please reconsult with any further concerns or need for further recommendations. 07/04/24- Increase Risperdal to 2 mg bid Will complete paperwork for mother who is filing for community guardianship. Hospitalist consult appreciated. Discuss PARIKH with pt and family Reason for continued inpatient stay Substantial Risk for: rapid decompensation Time Spent With Patient Time: Total time managing care of this patient today ____ minutes.
[2024-07-04] MEDS: LORazepam 1 MG TABLET 2 MG PO (14:34)
[2024-07-04] MEDS: OLANZapine 5 MG TABLET PO (14:34)
[2024-07-04] MEDS: risperiDONE 2 MG TABLET PO (20:25)
[2024-07-05 08:00] VITALS: BP 150/72; PULSE 97; RESP 16; TEMP 36.9; O2SAT 100
[2024-07-05] MEDS: Acetaminophen 325 MG TABLET 650 MG PO (08:30)
[2024-07-05] MEDS: risperiDONE 2 MG TABLET PO (08:30)
[2024-07-05] MEDS: OLANZapine 5 MG TABLET PO (08:30)
[2024-07-05] MEDS: hydrOXYzine HCL 25 MG TABLET PO (08:30)
[2024-07-05] MEDS: Escitalopram Oxalate 5 MG TABLET PO (08:30)
[2024-07-05] MEDS: Hydrocortisone 1 % Cream 28.35 GM TUBE 1 APPL TOPICAL (08:32)
[2024-07-05 08:40] LABS: Alanine Aminotransferase 136 U/L (0-40); Albumin Level 4.6 g/dL (3.5-5.0); Alkaline Phosphatase 95 U/L (39-117); Aspartate Amino Transferase 65 U/L (5-37); Bilirubin Direct 0.2 mg/dL (0.0-0.5); Bilirubin Total 0.4 mg/dL (0.0-1.0); Total Protein 7.3 g/dL (6.5-8.0)
--- NOTE | 2024-07-05 10:20 | P.PNPSI_ITS ---
Subjective Subjective Date of Service: 07/05/24 Reason For Visit: Schizophrenia, Cannabis use disorder Subjective Notes: Conditional Voluntary Healthcare Proxy: No Guardianship: No Medical Problems Affecting Mental Status: No Interim History: Met with pt and team. He reports fear of peers and their activity. Sx are not well managed. Olanzapine and Risperdal trials have not helped thus far. Will trial Haldol. He is approving. Medication Compliance: Yes Side effects from medications: No Attending Groups: No Review of Systems Acute medical concerns: No Medical Review of Systems: unchanged Review of Systems Review of Systems Denies Mental Status Exam Mental Status Exam Patient Appearance: Appropriate Patient Orientation: Person, Place, Time and Situation Level of Consciousness: Alert Patient Behavior: Appropriate, Guarded, Talkative, Cooperative, Anxious, Fearful, Distractible and Good Eye Contact Mood Description: Blunted Affect Description: Blunted Patient Cognition Impaired: No Ability to Follow Directions: Good Speech Pattern: Spontaneous Speech Memory Description: Episodic Impaired Hallucinations: Auditory Delusions: Paranoid Ideation Perceptual Disturbances: Depersonalization and Derealization Thought Process: Distracted and Rumination Thought Content: positive for [place], positive for Circumstantial, positive for Perseveration and positive for Tangential Depressive Symptoms: Increased Anxiety and Diff. Making Decisions Judgement: Poor Diagnostics Vital Signs (24Hr): Vital Signs - 24 hr 07/05/24 08:00 Temperature 98.5 F Pulse Rate 97 Respiratory Rate 16 Blood Pressure 150/72 H Pulse Oximetry 100 BMI result Body Mass Index 35.4 Labs 07/01/24 21:31 07/01/24 21:31 Labs: Laboratory Results - last 48 hr 07/04/24 07/04/24 07/05/24 07:48 07:49 07:58 Estimat Average Glucose 111 Hemoglobin A1c % 5.5 Magnesium 1.9 Total Bilirubin 0.4 Direct Bilirubin 0.2 AST 65 H ALT 136 H Alkaline Phosphatase 95 Total Protein 7.3 Albumin 4.6 Triglycerides 144 Cholesterol 195 LDL Cholesterol, Calc 128 H HDL Cholesterol 39 L Vitamin B12 600 Folate 9.3 TSH 0.71 Free T4 1.06 Medications Medications Current Medications Acetaminophen (Acetaminophen 325 Mg Tablet) 650 mg PO Q6H PRN PRN Reason: Headache/Pain, Scale 1-10 Last Admin: 07/05/24 08:30 Dose: 650 mg Al Hydroxide/Mg Hydroxide (Magnesium Hydrox/Alum Hydrox 30 Ml Oral.Susp) 30 ml PO Q6H PRN PRN Reason: Heartburn/Nausea Albuterol Sulfate (Albuterol Sulfate 90 Mcg 8 Gm Inhaler) 1 puff INHALE Q6H PRN PRN Reason: wheezing Albuterol Sulfate (Albuterol Sulfate 90 Mcg 8 Gm Inhaler) 2 puff INHALE RQ6H PRN PRN Reason: Shortness of Breath/Wheezing Escitalopram Oxalate (Escitalopram Oxalate 5 Mg Tablet) 5 mg PO DAILY [facility] Last Admin: 07/05/24 08:30 Dose: 5 mg Hydrocortisone (Hydrocortisone 1 % Cream 28.35 Gm Tube) 1 appl TOPICAL BID [facility]; Protocol Last Admin: 07/05/24 08:32 Dose: 1 appl Hydroxyzine HCl (Hydroxyzine Hcl 25 Mg Tablet) 25 mg PO Q6H PRN PRN Reason: mild anxiety Last Admin: 07/05/24 08:30 Dose: 25 mg Lorazepam (Lorazepam 1 Mg Tablet) 2 mg PO Q4H PRN PRN Reason: anxiety/restlessness Last Admin: 07/04/24 14:34 Dose: 2 mg Magnesium Hydroxide (Milk Of Magnesia 30 Ml Oral.Susp) 30 ml PO DAILY PRN PRN Reason: Constipation Nicotine Polacrilex (Nicotine Polacrilex 2 Mg Gum) 4 mg BUCCAL Q2H PRN PRN Reason: Nicotine Cravings Olanzapine (Olanzapine 5 Mg Tablet) 5 mg PO Q4H PRN PRN Reason: agitation; psychosis Last Admin: 07/05/24 08:30 Dose: 5 mg Risperidone (Risperidone 2 Mg Tablet) 2 mg PO BID [facility] Last Admin: 07/05/24 08:30 Dose: 2 mg Trazodone HCl (Trazodone Hcl 50 Mg Tablet) 50 mg PO BEDTIME MRX1 PRN PRN Reason: Insomnia Allergies Allergies Allergy/AdvReac Type Severity Reaction Status Date / Time cat dander Allergy Intermediate Runny Nose Verified 07/03/24 22:30 dog dander Allergy Intermediate Runny Nose Verified 07/03/24 22:30 pollen extracts Allergy Intermediate Itchy Eyes Verified 07/03/24 22:30 shellfish derived [shellfish] Allergy Anaphylaxis Verified 07/01/24 21:16 Assessment & Plan Assessment & Plan (1) Eczema: Status: Acute Code(s): L30.9 - Dermatitis, unspecified Plan Patient is a 28-year-old male with past medical history of eczema, asthma and anaphylaxis with shellfish as well as allergies to pollen, cats, dogs and marijuana use daily was seen on the psychiatric unit for concerns of hypertension and testicular pain. Blood pressure has normalized to 116/64 and examination and interview with patient notes resolve of previous testicular pain experienced in the emergency department. Exam also reassuring. Hypertension -Blood pressure has stabilized to 116/64, monitor Q shift -No intervention required at this time -Follow-up with PCP in the outpatient setting Testicular pain, resolved on exam -UA with reflex ordered noting a mild leukocytosis of 11.7 on 07/01 -re-consult hospitalist if UA or culture are positive -recommend screen for chlamydia and gonorrhea via urine sample to rule out only, pt asymptomatic -testicular and scrotal exam reassuring, no indication for diagnostics at this time Transaminitis (mild) -repeat LFTs in 24-48 hours and monitor for resolve -avoid hepatotoxic medications Eczema, chronic -noted plaques on both feet and hydrocortisone 1% ordered b.i.d. -recommend outpatient follow-up with rn compliance and/or early childhood teacher assistant Asthma -albuterol rescue inhaler ordered as needed -no indication for chest x-ray at this time Anaphylaxis to shellfish -EpiPens are located on the floor for emergent issues as needed -allergies also updated for environmental sources including pollen, cats and dogs Thank you for this consultation. Hospitalist group will sign off at this time. Please reconsult with any further concerns or need for further recommendations. 07/04/24- Increase Risperdal to 2 mg bid Will complete paperwork for mother who is filing for community guardianship. Hospitalist consult appreciated. Discuss PARIKH with pt and family 07/05/24- DC Risperdal Haldol 10 mg x 1 Haldol 5 mg tid to work on sx of fear Reason for continued inpatient stay Substantial Risk for: rapid decompensation Time Spent With Patient Time: Total time managing care of this patient today ____ minutes.
[2024-07-05] MEDS: Magnesium Hydrox/Alum Hydrox 30 ML ORAL.SUSP PO (10:56)
[2024-07-05] MEDS: HaloperidoL 5 MG TABLET 10 MG PO (12:41)
[2024-07-05] MEDS: HaloperidoL 5 MG TABLET PO ×2 (15:52→20:15)
[2024-07-05 20:00] VITALS: BP 112/61; PULSE 81; RESP 16; TEMP 36.3; O2SAT 97
[2024-07-05] MEDS: Benztropine Mesylate 1 MG TABLET PO (20:15)
--- NOTE | 2024-07-06 07:31 | P.PNPSI_ITS ---
Subjective Subjective Date of Service: 07/06/24 Reason For Visit: Schizophrenia, Cannabis use disorder Subjective Notes: Conditional Voluntary Healthcare Proxy: No Guardianship: No Medical Problems Affecting Mental Status: No Interim History: 28 yo male paranoid about another patient here and asking for transfer to another unit but nursing report says he was walking hallway with pt having a conversation soon after this- Pt seen by provider and seemed flat and guarded, with vague PI- hx si he reports no current plan/intent, hx sib but agrees to let staff know if he feels he will act on this- Medication Compliance: Yes Side effects from medications: No Attending Groups: No Review of Systems Acute medical concerns: No Medical Review of Systems: unchanged (continues to complain about testicular pain is known to staff-) Mental Status Exam Mental Status Exam Patient Appearance: Appropriate Patient Orientation: Person, Place, Time and Situation Level of Consciousness: Awake and Appropriate Patient Behavior: Guarded, Passive and Poor Eye Contact Mood Description: Fearful Affect Description: Blunted Patient Cognition Impaired: No Ability to Follow Directions: Fair Speech Pattern: Clear Hallucinations: None Delusions: Paranoid Ideation Thought Process: Intact and Goal Oriented Thought Content: positive for [place] and positive for Poverty of Content Depressive Symptoms: Unhappiness Judgement: Fair Diagnostics Vital Signs (24Hr): Vital Signs - 24 hr 07/05/24 08:00 07/05/24 20:00 Temperature 98.5 F 97.3 F Pulse Rate 97 81 Respiratory Rate 16 16 Blood Pressure 150/72 H 112/61 Pulse Oximetry 100 97 Oxygen Delivery Method Room Air BMI result Body Mass Index 35.4 Labs 07/01/24 21:31 07/01/24 21:31 Labs: Laboratory Results - last 48 hr 07/04/24 07/04/24 07/05/24 07:48 07:49 07:58 Estimat Average Glucose 111 Hemoglobin A1c % 5.5 Magnesium 1.9 Total Bilirubin 0.4 Direct Bilirubin 0.2 AST 65 H ALT 136 H Alkaline Phosphatase 95 Total Protein 7.3 Albumin 4.6 Triglycerides 144 Cholesterol 195 LDL Cholesterol, Calc 128 H HDL Cholesterol 39 L Vitamin B12 600 Folate 9.3 TSH 0.71 Free T4 1.06 elevated LFTs Medications Medications Current Medications Acetaminophen (Acetaminophen 325 Mg Tablet) 650 mg PO Q6H PRN PRN Reason: Headache/Pain, Scale 1-10 Last Admin: 07/05/24 08:30 Dose: 650 mg Al Hydroxide/Mg Hydroxide (Magnesium Hydrox/Alum Hydrox 30 Ml Oral.Susp) 30 ml PO Q6H PRN PRN Reason: Heartburn/Nausea Last Admin: 07/05/24 10:56 Dose: 30 ml Albuterol Sulfate (Albuterol Sulfate 90 Mcg 8 Gm Inhaler) 1 puff INHALE Q6H PRN PRN Reason: wheezing Albuterol Sulfate (Albuterol Sulfate 90 Mcg 8 Gm Inhaler) 2 puff INHALE RQ6H PRN PRN Reason: Shortness of Breath/Wheezing Benztropine Mesylate (Benztropine Mesylate 1 Mg Tablet) 1 mg PO BID [facility] Last Admin: 07/05/24 20:15 Dose: 1 mg Escitalopram Oxalate (Escitalopram Oxalate 5 Mg Tablet) 5 mg PO DAILY [facility] Last Admin: 07/05/24 08:30 Dose: 5 mg Haloperidol (Haloperidol 5 Mg Tablet) 5 mg PO TID [facility] Last Admin: 07/05/24 20:15 Dose: 5 mg Hydrocortisone (Hydrocortisone 1 % Cream 28.35 Gm Tube) 1 appl TOPICAL BID [facility]; Protocol Last Admin: 07/05/24 20:16 Dose: Not Given Hydroxyzine HCl (Hydroxyzine Hcl 25 Mg Tablet) 25 mg PO Q6H PRN PRN Reason: mild anxiety Last Admin: 07/05/24 08:30 Dose: 25 mg Lorazepam (Lorazepam 1 Mg Tablet) 2 mg PO Q4H PRN PRN Reason: anxiety/restlessness Last Admin: 07/04/24 14:34 Dose: 2 mg Magnesium Hydroxide (Milk Of Magnesia 30 Ml Oral.Susp) 30 ml PO DAILY PRN PRN Reason: Constipation Nicotine Polacrilex (Nicotine Polacrilex 2 Mg Gum) 4 mg BUCCAL Q2H PRN PRN Reason: Nicotine Cravings Olanzapine (Olanzapine 5 Mg Tablet) 5 mg PO Q4H PRN PRN Reason: agitation; psychosis Last Admin: 07/05/24 08:30 Dose: 5 mg Trazodone HCl (Trazodone Hcl 50 Mg Tablet) 50 mg PO BEDTIME MRX1 PRN PRN Reason: Insomnia Allergies Allergies Allergy/AdvReac Type Severity Reaction Status Date / Time cat dander Allergy Intermediate Runny Nose Verified 07/03/24 22:30 dog dander Allergy Intermediate Runny Nose Verified 07/03/24 22:30 pollen extracts Allergy Intermediate Itchy Eyes Verified 07/03/24 22:30 shellfish derived [shellfish] Allergy Anaphylaxis Verified 07/01/24 21:16 Assessment & Plan Assessment & Plan (1) Eczema: Status: Acute Code(s): L30.9 - Dermatitis, unspecified Plan Patient is a 28-year-old male with past medical history of eczema, asthma and anaphylaxis with shellfish as well as allergies to pollen, cats, dogs and marijuana use daily was seen on the psychiatric unit for concerns of hypertension and testicular pain. Blood pressure has normalized to 116/64 and examination and interview with patient notes resolve of previous testicular pain experienced in the emergency department. Exam also reassuring. Hypertension -Blood pressure has stabilized to 116/64, monitor Q shift -No intervention required at this time -Follow-up with PCP in the outpatient setting Testicular pain, resolved on exam -UA with reflex ordered noting a mild leukocytosis of 11.7 on 07/01 -re-consult hospitalist if UA or culture are positive -recommend screen for chlamydia and gonorrhea via urine sample to rule out only, pt asymptomatic -testicular and scrotal exam reassuring, no indication for diagnostics at this time Transaminitis (mild) -repeat LFTs in 24-48 hours and monitor for resolve -avoid hepatotoxic medications Eczema, chronic -noted plaques on both feet and hydrocortisone 1% ordered b.i.d. -recommend outpatient follow-up with bench machine operator and/or manager of corporate Asthma -albuterol rescue inhaler ordered as needed -no indication for chest x-ray at this time Anaphylaxis to shellfish -EpiPens are located on the floor for emergent issues as needed -allergies also updated for environmental sources including pollen, cats and dogs Thank you for this consultation. Hospitalist group will sign off at this time. Please reconsult with any further concerns or need for further recommendations. 07/04/24- Increase Risperdal to 2 mg bid Will complete paperwork for mother who is filing for community guardianship. Hospitalist consult appreciated. Discuss PARIKH with pt and family 07/05/24- DC Risperdal Haldol 10 mg x 1 Haldol 5 mg tid to work on sx of fear 07/06/24- doing better on haldol - check hepatitis panel Patient educated on: therapeutic strategies and medical condition Informed Consent: further education needed Reason for continued inpatient stay Substantial Risk for: inability to function and rapid decompensation Time Spent With Patient Time: Total time managing care of this patient today ____ minutes.
[2024-07-06 08:00] VITALS: BP 140/67; PULSE 78; TEMP 36.8; O2SAT 97
[2024-07-06] MEDS: Escitalopram Oxalate 5 MG TABLET PO (09:09)
[2024-07-06] MEDS: Benztropine Mesylate 1 MG TABLET PO ×2 (09:09→22:03)
[2024-07-06] MEDS: HaloperidoL 5 MG TABLET PO ×3 (09:10→22:03)
[2024-07-06] MEDS: OLANZapine 5 MG TABLET PO ×2 (10:47→22:03)
[2024-07-06 20:00] VITALS: BP 107/57; PULSE 69; RESP 16; TEMP 36.8; O2SAT 96
[2024-07-07 08:00] VITALS: BP 130/66; PULSE 83; TEMP 36.6; O2SAT 96
--- NOTE | 2024-07-07 08:09 | P.PNPSI_ITS ---
Subjective Subjective Date of Service: 07/07/24 Reason For Visit: Schizophrenia, Cannabis use disorder Subjective Notes: Conditional Voluntary Healthcare Proxy: No Guardianship: No Medical Problems Affecting Mental Status: No Interim History: 28 yo continues guarded and paranoid- however was walking in [place] with reported patient he is paranoid about joking and laughing with him- discussed with patient setting and managing boundaries with others and if he fills patient is intrussive just redirecting him and asking for his space- rather than hiding out in his room Medication Compliance: Yes Side effects from medications: No Attending Groups: Intermittent Review of Systems Acute medical concerns: No Medical Review of Systems: unchanged Mental Status Exam Mental Status Exam Patient Appearance: Appropriate Patient Orientation: Person, Place, Time and Situation Level of Consciousness: Awake and Appropriate Patient Behavior: Guarded, Passive and Poor Eye Contact Mood Description: Fearful Affect Description: Blunted Patient Cognition Impaired: No Ability to Follow Directions: Fair Speech Pattern: Clear Hallucinations: None Delusions: Paranoid Ideation Thought Process: Intact and Goal Oriented Thought Content: positive for [place] and positive for Poverty of Content Depressive Symptoms: Unhappiness Judgement: Fair Diagnostics Vital Signs (24Hr): Vital Signs - 24 hr 07/06/24 20:00 Temperature 98.2 F Pulse Rate 69 Respiratory Rate 16 Blood Pressure 107/57 L Pulse Oximetry 96 Oxygen Delivery Method Room Air BMI result Body Mass Index 35.4 Labs 07/01/24 21:31 07/01/24 21:31 Labs: Laboratory Results - last 48 hr 07/05/24 07:58 Total Bilirubin 0.4 Direct Bilirubin 0.2 AST 65 H ALT 136 H Alkaline Phosphatase 95 Total Protein 7.3 Albumin 4.6 Medications Medications Current Medications Acetaminophen (Acetaminophen 325 Mg Tablet) 650 mg PO Q6H PRN PRN Reason: Headache/Pain, Scale 1-10 Last Admin: 07/05/24 08:30 Dose: 650 mg Al Hydroxide/Mg Hydroxide (Magnesium Hydrox/Alum Hydrox 30 Ml Oral.Susp) 30 ml PO Q6H PRN PRN Reason: Heartburn/Nausea Last Admin: 07/05/24 10:56 Dose: 30 ml Albuterol Sulfate (Albuterol Sulfate 90 Mcg 8 Gm Inhaler) 1 puff INHALE Q6H PRN PRN Reason: wheezing Albuterol Sulfate (Albuterol Sulfate 90 Mcg 8 Gm Inhaler) 2 puff INHALE RQ6H PRN PRN Reason: Shortness of Breath/Wheezing Benztropine Mesylate (Benztropine Mesylate 1 Mg Tablet) 1 mg PO BID [facility] Last Admin: 07/06/24 22:03 Dose: 1 mg Escitalopram Oxalate (Escitalopram Oxalate 5 Mg Tablet) 5 mg PO DAILY [facility] Last Admin: 07/06/24 09:09 Dose: 5 mg Haloperidol (Haloperidol 5 Mg Tablet) 5 mg PO TID [facility] Last Admin: 07/06/24 22:03 Dose: 5 mg Hydrocortisone (Hydrocortisone 1 % Cream 28.35 Gm Tube) 1 appl TOPICAL BID [facility]; Protocol Last Admin: 07/06/24 22:03 Dose: Not Given Hydroxyzine HCl (Hydroxyzine Hcl 25 Mg Tablet) 25 mg PO Q6H PRN PRN Reason: mild anxiety Last Admin: 07/05/24 08:30 Dose: 25 mg Lorazepam (Lorazepam 1 Mg Tablet) 2 mg PO Q4H PRN PRN Reason: anxiety/restlessness Last Admin: 07/04/24 14:34 Dose: 2 mg Magnesium Hydroxide (Milk Of Magnesia 30 Ml Oral.Susp) 30 ml PO DAILY PRN PRN Reason: Constipation Nicotine Polacrilex (Nicotine Polacrilex 2 Mg Gum) 4 mg BUCCAL Q2H PRN PRN Reason: Nicotine Cravings Olanzapine (Olanzapine 5 Mg Tablet) 5 mg PO Q4H PRN PRN Reason: agitation; psychosis Last Admin: 07/06/24 22:03 Dose: 5 mg Trazodone HCl (Trazodone Hcl 50 Mg Tablet) 50 mg PO BEDTIME MRX1 PRN PRN Reason: Insomnia Allergies Allergies Allergy/AdvReac Type Severity Reaction Status Date / Time cat dander Allergy Intermediate Runny Nose Verified 07/03/24 22:30 dog dander Allergy Intermediate Runny Nose Verified 07/03/24 22:30 pollen extracts Allergy Intermediate Itchy Eyes Verified 07/03/24 22:30 shellfish derived [shellfish] Allergy Anaphylaxis Verified 07/01/24 21:16 Assessment & Plan Assessment & Plan (1) Eczema: Status: Acute Code(s): L30.9 - Dermatitis, unspecified Plan Patient is a 28-year-old male with past medical history of eczema, asthma and anaphylaxis with shellfish as well as allergies to pollen, cats, dogs and marijuana use daily was seen on the psychiatric unit for concerns of hypertension and testicular pain. Blood pressure has normalized to 116/64 and examination and interview with patient notes resolve of previous testicular pain experienced in the emergency department. Exam also reassuring. Hypertension -Blood pressure has stabilized to 116/64, monitor Q shift -No intervention required at this time -Follow-up with PCP in the outpatient setting Testicular pain, resolved on exam -UA with reflex ordered noting a mild leukocytosis of 11.7 on 07/01 -re-consult hospitalist if UA or culture are positive -recommend screen for chlamydia and gonorrhea via urine sample to rule out only, pt asymptomatic -testicular and scrotal exam reassuring, no indication for diagnostics at this time Transaminitis (mild) -repeat LFTs in 24-48 hours and monitor for resolve -avoid hepatotoxic medications Eczema, chronic -noted plaques on both feet and hydrocortisone 1% ordered b.i.d. -recommend outpatient follow-up with metal control coordinator and/or front office attendant Asthma -albuterol rescue inhaler ordered as needed -no indication for chest x-ray at this time Anaphylaxis to shellfish -EpiPens are located on the floor for emergent issues as needed -allergies also updated for environmental sources including pollen, cats and dogs Thank you for this consultation. Hospitalist group will sign off at this time. Please reconsult with any further concerns or need for further recommendations. 07/04/24- Increase Risperdal to 2 mg bid Will complete paperwork for mother who is filing for community guardianship. Hospitalist consult appreciated. Discuss PARIKH with pt and family 07/05/24- DC Risperdal Haldol 10 mg x 1 Haldol 5 mg tid to work on sx of fear 07/06/24- doing better on haldol - check hepatitis panel 07/07 CTP encouraged setting boundaries- hep panel pending Patient educated on: therapeutic strategies Informed Consent: understands Reason for continued inpatient stay Substantial Risk for: inability to function and rapid decompensation Time Spent With Patient Time: Total time managing care of this patient today ____ minutes.
[2024-07-07] MEDS: Escitalopram Oxalate 5 MG TABLET PO (08:24)
[2024-07-07] MEDS: HaloperidoL 5 MG TABLET PO ×3 (08:24→21:07)
[2024-07-07] MEDS: Benztropine Mesylate 1 MG TABLET PO ×2 (08:24→21:07)
[2024-07-07 20:00] VITALS: BP 143/67; PULSE 86; TEMP 36.7; O2SAT 97
[2024-07-08 08:00] VITALS: BP 143/69; PULSE 78; RESP 16; TEMP 36.9; O2SAT 96
[2024-07-08] MEDS: Hydrocortisone 1 % Cream 28.35 GM TUBE 1 APPL TOPICAL (08:43)
[2024-07-08] MEDS: Benztropine Mesylate 1 MG TABLET PO ×2 (08:44→21:12)
[2024-07-08] MEDS: Acetaminophen 325 MG TABLET 650 MG PO ×2 (08:45→14:46)
[2024-07-08] MEDS: Escitalopram Oxalate 5 MG TABLET PO (08:45)
[2024-07-08] MEDS: HaloperidoL 5 MG TABLET PO ×3 (08:45→21:12)
[2024-07-08] MEDS: OLANZapine 5 MG TABLET PO (08:45)
[2024-07-08] MEDS: hydrOXYzine HCL 25 MG TABLET PO ×2 (08:45→14:47)
[2024-07-08 08:50] LABS: HBS Num1 1.05 mIU/mL (0-7.99); HBc Num1 0.05 S/CO (0.00-0.79); HBsAGNum1 0.31 S/CO (0.00-0.99); Hepatitis A Antibody IgM 0.21 Index (0-0.79); Hepatitis B Core Antibody Nonreactive (Nonreactive); Hepatitis B Surface Antigen Negative (Negative); ~HepC Num1 0.19 S/CO (0.00-0.79); ~Hepatitis A Antibody IgM Nonreactive (Nonreactive); ~Hepatitis B Surface Antibody NONREACTIVE (Nonreactive); ~Hepatitis C Antibody Nonreactive (Nonreactive)
--- NOTE | 2024-07-08 17:18 | HO.PSYCHPN ---
Subjective Subjective Date of Service: 07/08/24 Reason For Visit: Schizophrenia, Cannabis use disorder Subjective Notes: Conditional Voluntary Healthcare Proxy: No Guardianship: No Interim History: Pt continues to report fear of milieu, anxiety with peers, fear he will be killed if discharged. Review of diagnostics, pt has not yet submitted urine for testing related to report of testicular pain, discussed. Pt declines medicine changes today to assist with sx mgt. Medication Compliance: Yes Side effects from medications: No Review of Systems Review of Systems testicular pain Mental Status Exam Mental Status Exam Patient Appearance: Appropriate Patient Orientation: Person, Place, Time and Situation Level of Consciousness: Awake and Appropriate Patient Behavior: Guarded, Passive and Poor Eye Contact Mood Description: Fearful Affect Description: Blunted Patient Cognition Impaired: No Ability to Follow Directions: Fair Speech Pattern: Clear Hallucinations: None Delusions: Paranoid Ideation Thought Process: Intact and Goal Oriented Thought Content: positive for [place] and positive for Poverty of Content Depressive Symptoms: Unhappiness Judgement: Fair Diagnostics Vital Signs (24Hr): Vital Signs - 24 hr 07/07/24 20:00 07/08/24 08:00 Temperature 98.0 F 98.5 F Pulse Rate 86 78 Respiratory Rate 16 Blood Pressure 143/67 H 143/69 H Pulse Oximetry 97 96 Oxygen Delivery Method Room Air BMI result Body Mass Index 35.4 Labs 07/01/24 21:31 07/01/24 21:31 Labs: Laboratory Results - last 48 hr 07/08/24 07:51 Hepatitis A IgM Ab Nonreactive Hep Bs Antigen Negative Hep Bs Antibody NONREACTIVE Hep B Core Total Ab Nonreactive Hepatitis C Ab (EIA) Nonreactive Medications Medications Current Medications Acetaminophen (Acetaminophen 325 Mg Tablet) 650 mg PO Q6H PRN PRN Reason: Headache/Pain, Scale 1-10 Last Admin: 07/08/24 14:46 Dose: 650 mg Al Hydroxide/Mg Hydroxide (Magnesium Hydrox/Alum Hydrox 30 Ml Oral.Susp) 30 ml PO Q6H PRN PRN Reason: Heartburn/Nausea Last Admin: 07/05/24 10:56 Dose: 30 ml Albuterol Sulfate (Albuterol Sulfate 90 Mcg 8 Gm Inhaler) 1 puff INHALE Q6H PRN PRN Reason: wheezing Albuterol Sulfate (Albuterol Sulfate 90 Mcg 8 Gm Inhaler) 2 puff INHALE RQ6H PRN PRN Reason: Shortness of Breath/Wheezing Benztropine Mesylate (Benztropine Mesylate 1 Mg Tablet) 1 mg PO BID [facility] Last Admin: 07/08/24 08:44 Dose: 1 mg Escitalopram Oxalate (Escitalopram Oxalate 5 Mg Tablet) 5 mg PO DAILY [facility] Last Admin: 07/08/24 08:45 Dose: 5 mg Haloperidol (Haloperidol 5 Mg Tablet) 5 mg PO TID [facility] Last Admin: 07/08/24 14:47 Dose: 5 mg Hydrocortisone (Hydrocortisone 1 % Cream 28.35 Gm Tube) 1 appl TOPICAL BID [facility]; Protocol Last Admin: 07/08/24 08:43 Dose: 1 appl Hydroxyzine HCl (Hydroxyzine Hcl 25 Mg Tablet) 25 mg PO Q6H PRN PRN Reason: mild anxiety Last Admin: 07/08/24 14:47 Dose: 25 mg Lorazepam (Lorazepam 1 Mg Tablet) 2 mg PO Q4H PRN PRN Reason: anxiety/restlessness Last Admin: 07/04/24 14:34 Dose: 2 mg Magnesium Hydroxide (Milk Of Magnesia 30 Ml Oral.Susp) 30 ml PO DAILY PRN PRN Reason: Constipation Nicotine Polacrilex (Nicotine Polacrilex 2 Mg Gum) 4 mg BUCCAL Q2H PRN PRN Reason: Nicotine Cravings Olanzapine (Olanzapine 5 Mg Tablet) 5 mg PO Q4H PRN PRN Reason: agitation; psychosis Last Admin: 07/08/24 08:45 Dose: 5 mg Trazodone HCl (Trazodone Hcl 50 Mg Tablet) 50 mg PO BEDTIME MRX1 PRN PRN Reason: Insomnia Allergies Allergies Allergy/AdvReac Type Severity Reaction Status Date / Time cat dander Allergy Intermediate Runny Nose Verified 07/03/24 22:30 dog dander Allergy Intermediate Runny Nose Verified 07/03/24 22:30 pollen extracts Allergy Intermediate Itchy Eyes Verified 07/03/24 22:30 shellfish derived [shellfish] Allergy Anaphylaxis Verified 07/01/24 21:16 Assessment & Plan Assessment & Plan (1) Eczema: Status: Acute Code(s): L30.9 - Dermatitis, unspecified Plan Patient is a 28-year-old male with past medical history of eczema, asthma and anaphylaxis with shellfish as well as allergies to pollen, cats, dogs and marijuana use daily was seen on the psychiatric unit for concerns of hypertension and testicular pain. Blood pressure has normalized to 116/64 and examination and interview with patient notes resolve of previous testicular pain experienced in the emergency department. Exam also reassuring. Hypertension -Blood pressure has stabilized to 116/64, monitor Q shift -No intervention required at this time -Follow-up with PCP in the outpatient setting Testicular pain, resolved on exam -UA with reflex ordered noting a mild leukocytosis of 11.7 on 07/01 -re-consult hospitalist if UA or culture are positive -recommend screen for chlamydia and gonorrhea via urine sample to rule out only, pt asymptomatic -testicular and scrotal exam reassuring, no indication for diagnostics at this time Transaminitis (mild) -repeat LFTs in 24-48 hours and monitor for resolve -avoid hepatotoxic medications Eczema, chronic -noted plaques on both feet and hydrocortisone 1% ordered b.i.d. -recommend outpatient follow-up with environmental project manager and/or emergency room rn Asthma -albuterol rescue inhaler ordered as needed -no indication for chest x-ray at this time Anaphylaxis to shellfish -EpiPens are located on the floor for emergent issues as needed -allergies also updated for environmental sources including pollen, cats and dogs Thank you for this consultation. Hospitalist group will sign off at this time. Please reconsult with any further concerns or need for further recommendations. 07/04/24- Increase Risperdal to 2 mg bid Will complete paperwork for mother who is filing for community guardianship. Hospitalist consult appreciated. Discuss PARIKH with pt and family 07/05/24- DC Risperdal Haldol 10 mg x 1 Haldol 5 mg tid to work on sx of fear 07/06/24- doing better on haldol - check hepatitis panel 07/08- Pt wanting to continue Haldol at current dosage. Reason for continued inpatient stay Substantial Risk for: rapid decompensation Time Spent With Patient Time: Total time managing care of this patient today ____ minutes.
[2024-07-09 06:18] LABS: Appearance Urine Clear; Color Urine Yellow; Glucose Urine UA Negative (Negative); Leukocyte Esterase Urine Negative (Negative); Nitrite Urine Negative (Negative); PH 5.5 (5.0-9.0); Specific Gravity - Urine >= 1.030 (1.005-1.025); Urine Blood Negative (Negative); Urine Ketones Trace mg/dL (Negative); Urine Protein Negative (Neg-Trace)
[2024-07-09 08:00] VITALS: BP 137/86; PULSE 77; RESP 16; TEMP 36.8; O2SAT 98
[2024-07-09 08:56] LABS: CT PCR NOT DETECTED (Not Detect.); NG PCR NOT DETECTED (Not Detect.)
[2024-07-09] MEDS: Escitalopram Oxalate 5 MG TABLET PO (09:10)
[2024-07-09] MEDS: HaloperidoL 5 MG TABLET PO (09:10)
[2024-07-09] MEDS: OLANZapine 5 MG TABLET PO (09:10)
[2024-07-09] MEDS: Benztropine Mesylate 1 MG TABLET PO ×2 (09:10→20:29)
[2024-07-09] MEDS: hydrOXYzine HCL 25 MG TABLET PO ×2 (09:10→14:48)
[2024-07-09] MEDS: Acetaminophen 325 MG TABLET 650 MG PO ×2 (09:11→14:48)
--- NOTE | 2024-07-09 10:20 | P.PNPSI_ITS ---
Subjective Subjective Date of Service: 07/09/24 Reason For Visit: Schizophrenia, Cannabis use disorder Subjective Notes: Conditional Voluntary and 3 Day Healthcare Proxy: No Guardianship: No Medical Problems Affecting Mental Status: No Interim History: Pt able to discuss concerns-believes he has testicular cancer and this is a concern I want to get and have children . Discussed urology consult and he reports he would feel relief to have this assessment. Reports med increase is tolerated and he still feels at risk to discharge as someone may kill me . Encouraged to retract three day notice and continue his treatment. He will consider. Medication Compliance: Yes Side effects from medications: No Attending Groups: No Review of Systems Acute medical concerns: No Review of Systems Review of Systems Testicular pain Mental Status Exam Mental Status Exam Patient Appearance: Appropriate Patient Orientation: Person, Place, Time and Situation Level of Consciousness: Awake and Appropriate Patient Behavior: Guarded, Passive and Poor Eye Contact Mood Description: Fearful Affect Description: Blunted Patient Cognition Impaired: No Ability to Follow Directions: Fair Speech Pattern: Clear Hallucinations: None Delusions: Paranoid Ideation Thought Process: Intact and Goal Oriented Thought Content: positive for [place] and positive for Poverty of Content Depressive Symptoms: Unhappiness Judgement: Fair Diagnostics Vital Signs (24Hr): BMI result Body Mass Index 35.4 Labs 07/01/24 21:31 07/01/24 21:31 Labs: Laboratory Results - last 48 hr 07/08/24 07/09/24 07:51 06:05 Urine Color Yellow Urine Appearance Clear Urine pH 5.5 Ur Specific [place] >= 1.030 H Urine Protein Negative Urine Glucose (UA) Negative Urine Ketones Trace Urine Blood Negative Urine Nitrite Negative Ur Leukocyte Esterase Negative Chlam trachomat DNA PCR NOT DETECTED Hepatitis A IgM Ab Nonreactive Hep Bs Antigen Negative Hep Bs Antibody NONREACTIVE Hep B Core Total Ab Nonreactive Hepatitis C Ab (EIA) Nonreactive N.gonorrhoeae DNA (PCR) NOT DETECTED Medications Medications Current Medications Acetaminophen (Acetaminophen 325 Mg Tablet) 650 mg PO Q6H PRN PRN Reason: Headache/Pain, Scale 1-10 Last Admin: 07/09/24 09:11 Dose: 650 mg Al Hydroxide/Mg Hydroxide (Magnesium Hydrox/Alum Hydrox 30 Ml Oral.Susp) 30 ml PO Q6H PRN PRN Reason: Heartburn/Nausea Last Admin: 07/05/24 10:56 Dose: 30 ml Albuterol Sulfate (Albuterol Sulfate 90 Mcg 8 Gm Inhaler) 1 puff INHALE Q6H PRN PRN Reason: wheezing Albuterol Sulfate (Albuterol Sulfate 90 Mcg 8 Gm Inhaler) 2 puff INHALE RQ6H PRN PRN Reason: Shortness of Breath/Wheezing Benztropine Mesylate (Benztropine Mesylate 1 Mg Tablet) 1 mg PO BID [facility] Last Admin: 07/09/24 09:10 Dose: 1 mg Escitalopram Oxalate (Escitalopram Oxalate 5 Mg Tablet) 5 mg PO DAILY [facility] Last Admin: 07/09/24 09:10 Dose: 5 mg Haloperidol (Haloperidol 5 Mg Tablet) 5 mg PO TID [facility] Last Admin: 07/09/24 09:10 Dose: 5 mg Hydrocortisone (Hydrocortisone 1 % Cream 28.35 Gm Tube) 1 appl TOPICAL BID [facility]; Protocol Last Admin: 07/08/24 21:15 Dose: Not Given Hydroxyzine HCl (Hydroxyzine Hcl 25 Mg Tablet) 25 mg PO Q6H PRN PRN Reason: mild anxiety Last Admin: 07/09/24 09:10 Dose: 25 mg Lorazepam (Lorazepam 1 Mg Tablet) 2 mg PO Q4H PRN PRN Reason: anxiety/restlessness Last Admin: 07/04/24 14:34 Dose: 2 mg Magnesium Hydroxide (Milk Of Magnesia 30 Ml Oral.Susp) 30 ml PO DAILY PRN PRN Reason: Constipation Nicotine Polacrilex (Nicotine Polacrilex 2 Mg Gum) 4 mg BUCCAL Q2H PRN PRN Reason: Nicotine Cravings Olanzapine (Olanzapine 5 Mg Tablet) 5 mg PO Q4H PRN PRN Reason: agitation; psychosis Last Admin: 07/09/24 09:10 Dose: 5 mg Trazodone HCl (Trazodone Hcl 50 Mg Tablet) 50 mg PO BEDTIME MRX1 PRN PRN Reason: Insomnia Allergies Allergies Allergy/AdvReac Type Severity Reaction Status Date / Time cat dander Allergy Intermediate Runny Nose Verified 07/03/24 22:30 dog dander Allergy Intermediate Runny Nose Verified 07/03/24 22:30 pollen extracts Allergy Intermediate Itchy Eyes Verified 07/03/24 22:30 shellfish derived [shellfish] Allergy Anaphylaxis Verified 07/01/24 21:16 Assessment & Plan Assessment & Plan (1) Eczema: Status: Acute Code(s): L30.9 - Dermatitis, unspecified Plan Patient is a 28-year-old male with past medical history of eczema, asthma and anaphylaxis with shellfish as well as allergies to pollen, cats, dogs and marijuana use daily was seen on the psychiatric unit for concerns of hypertension and testicular pain. Blood pressure has normalized to 116/64 and examination and interview with patient notes resolve of previous testicular pain experienced in the emergency department. Exam also reassuring. Hypertension -Blood pressure has stabilized to 116/64, monitor Q shift -No intervention required at this time -Follow-up with PCP in the outpatient setting Testicular pain, resolved on exam -UA with reflex ordered noting a mild leukocytosis of 11.7 on 07/01 -re-consult hospitalist if UA or culture are positive -recommend screen for chlamydia and gonorrhea via urine sample to rule out only, pt asymptomatic -testicular and scrotal exam reassuring, no indication for diagnostics at this time Transaminitis (mild) -repeat LFTs in 24-48 hours and monitor for resolve -avoid hepatotoxic medications Eczema, chronic -noted plaques on both feet and hydrocortisone 1% ordered b.i.d. -recommend outpatient follow-up with fluoroscope operator and/or clinical data analyst Asthma -albuterol rescue inhaler ordered as needed -no indication for chest x-ray at this time Anaphylaxis to shellfish -EpiPens are located on the floor for emergent issues as needed -allergies also updated for environmental sources including pollen, cats and dogs Thank you for this consultation. Hospitalist group will sign off at this time. Please reconsult with any further concerns or need for further recommendations. 07/04/24- Increase Risperdal to 2 mg bid Will complete paperwork for mother who is filing for community guardianship. Hospitalist consult appreciated. Discuss PARIKH with pt and family 07/05/24- DC Risperdal Haldol 10 mg x 1 Haldol 5 mg tid to work on sx of fear 07/06/24- doing better on haldol - check hepatitis panel 07/09/24 Tolerating Haldol 10 mg tid thus far. Await effectis. Urology consult-testicular pain Reason for continued inpatient stay Substantial Risk for: rapid decompensation Time Spent With Patient Time: Total time managing care of this patient today ____ minutes.
[2024-07-09] MEDS: HaloperidoL 5 MG TABLET 10 MG PO ×2 (14:48→20:28)
[2024-07-09 20:00] VITALS: BP 130/82; PULSE 64; RESP 16; TEMP 36.6; O2SAT 99
[2024-07-09] MEDS: Hydrocortisone 1 % Cream 28.35 GM TUBE 1 APPL TOPICAL (20:29)
[2024-07-10 08:00] VITALS: BP 143/77; PULSE 69; RESP 16; TEMP 36.8; O2SAT 97
[2024-07-10] MEDS: Escitalopram Oxalate 5 MG TABLET PO (08:15)
[2024-07-10] MEDS: Benztropine Mesylate 1 MG TABLET PO ×2 (08:15→22:07)
[2024-07-10] MEDS: HaloperidoL 5 MG TABLET 10 MG PO ×3 (08:15→22:06)
[2024-07-10] MEDS: hydrOXYzine HCL 25 MG TABLET PO (08:17)
[2024-07-10] MEDS: Hydrocortisone 1 % Cream 28.35 GM TUBE 1 APPL TOPICAL (08:18)
[2024-07-10] MEDS: Acetaminophen 325 MG TABLET 650 MG PO (11:46)
--- NOTE | 2024-07-10 12:02 | PM.UROCN ---
History of Present Illness Consult details Consult date: 07/10/24 Reason for consult: other (Right testicular pain) Narrative: 28 year old with h/o schizophrenia, cannabis use, admitted to psychiatry. Pt states he has had chronic right testicular pain pulsating in nature, denies trauma, uses tylenol OTC which has helped, denies STD's, denies problems with urination, denies urethral discharge. Exam is benign, no tenderness ellicited with exam, no cellulitis or discrete mass palpated. Symptoms are chronic and persistent. Recommend US scrotal for further evaluation. Review of Systems Review of Systems: Yes all other systems are reviewed and are negative Constitutional: Constitutional: Reports no additional constitutional complaints Eyes: Eyes: Reports no additional eye complaints ENT: Reports system reviewed and no additional complaints, except as documented Cardiovascular: Cardiovascular: Reports no additional cardiovascular complaints Respiratory: Respiratory: Reports no additional respiratory complaints Gastrointestinal: Gastrointestinal: Reports no additional gastrointestinal complaints Genitourinary: Genitourinary: Reports as per HPI Musculoskeletal: Musculoskeletal: Reports no additional musculoskeletal complaints Integumentary/Breasts: Skin/Breast: Reports system reviewed and no additional complaints, except as docu Neurologic: Reports system reviewed and no additional complaints, except as documented Psychiatric: Psychiatric: Reports no additional psychiatric complaints Endocrine: Endocrine: Reports no additional endocrine complaints Hematologic/Lymphatic: Hematologic/Lymphatic: Reports no additional hematologic/lymphatic complaints Allergic/Immunologic: Allergic/Immunologic: Reports no additional allergic/immunologic complaints PMFSH Past Medical History Medical History Eczema Asthma Cannabis dependence Schizophrenia Social History Social History Household Members: Other Household Members Other:: Mom Housing: Condominium Do you presently have visiting nurse or other home services: No Alcohol intake: current Alcohol intake frequency: a few times a week Alcohol type: beer Patient Tobacco Use Status: Never used Tobacco Smoked in Last 30 Days: No e-Cigarette/Vaping Use: Former Use Frequency of e-Cigarette/Vaping Use: stopped two years ago Patient Interested in Nicotine Replacement: No Use of substances other than those prescribed or required for medical reasons: Yes Substance Use Type: Marijuana Substance Use Frequency: Daily Last Used Substance: Just Prior to Admission Currently Displaying Signs/Symptoms of Drug Intoxication Withdrawal: No Do you feel safe in your current relationship?: No Current Relationship Is there a partner from a previous relationship who is making you feel unsafe now?: No Are you made to feel afraid or neglected: Yes (Pt states people online are threatening his life. Police think is delusion) Advance Directives: No Advance Directives Information Provided: No Do you have thoughts of harming others: None Do you have a plan to hurt others: No Plan Recently lost weight without trying: No Eating poorly because of decreased appetite: No Nutrition Risks: No Nutritional Risk service: No Sexual orientation: Unable to collect Travel History Ebola Risk: Travel/Contact With Anyone From Affected Area/s: No Has Patient Experienced Ebola Symptoms: No Meds Allergies Allergy/AdvReac Type Severity Reaction Status Date / Time cat dander Allergy Intermediate Runny Nose Verified 07/03/24 22:30 dog dander Allergy Intermediate Runny Nose Verified 07/03/24 22:30 pollen extracts Allergy Intermediate Itchy Eyes Verified 07/03/24 22:30 shellfish derived [shellfish] Allergy Anaphylaxis Verified 07/01/24 21:16 Active Medications: Current Medications Acetaminophen (Acetaminophen 325 Mg Tablet) 650 mg PO Q6H PRN PRN Reason: Headache/Pain, Scale 1-10 Last Admin: 07/10/24 11:46 Dose: 650 mg Al Hydroxide/Mg Hydroxide (Magnesium Hydrox/Alum Hydrox 30 Ml Oral.Susp) 30 ml PO Q6H PRN PRN Reason: Heartburn/Nausea Last Admin: 07/05/24 10:56 Dose: 30 ml Albuterol Sulfate (Albuterol Sulfate 90 Mcg 8 Gm Inhaler) 1 puff INHALE Q6H PRN PRN Reason: wheezing Albuterol Sulfate (Albuterol Sulfate 90 Mcg 8 Gm Inhaler) 2 puff INHALE RQ6H PRN PRN Reason: Shortness of Breath/Wheezing Benztropine Mesylate (Benztropine Mesylate 1 Mg Tablet) 1 mg PO BID [facility] Last Admin: 07/10/24 08:15 Dose: 1 mg Escitalopram Oxalate (Escitalopram Oxalate 5 Mg Tablet) 5 mg PO DAILY [facility] Last Admin: 07/10/24 08:15 Dose: 5 mg Haloperidol (Haloperidol 5 Mg Tablet) 10 mg PO TID [facility] Last Admin: 07/10/24 08:15 Dose: 10 mg Hydrocortisone (Hydrocortisone 1 % Cream 28.35 Gm Tube) 1 appl TOPICAL BID [facility]; Protocol Last Admin: 07/10/24 08:18 Dose: 1 appl Hydroxyzine HCl (Hydroxyzine Hcl 25 Mg Tablet) 25 mg PO Q6H PRN PRN Reason: mild anxiety Last Admin: 07/10/24 08:17 Dose: 25 mg Lorazepam (Lorazepam 1 Mg Tablet) 2 mg PO Q4H PRN PRN Reason: anxiety/restlessness Last Admin: 07/04/24 14:34 Dose: 2 mg Magnesium Hydroxide (Milk Of Magnesia 30 Ml Oral.Susp) 30 ml PO DAILY PRN PRN Reason: Constipation Nicotine Polacrilex (Nicotine Polacrilex 2 Mg Gum) 4 mg BUCCAL Q2H PRN PRN Reason: Nicotine Cravings Olanzapine (Olanzapine 5 Mg Tablet) 5 mg PO Q4H PRN PRN Reason: agitation; psychosis Last Admin: 07/09/24 09:10 Dose: 5 mg Trazodone HCl (Trazodone Hcl 50 Mg Tablet) 50 mg PO BEDTIME MRX1 PRN PRN Reason: Insomnia Home Medications ?Medication ?Instructions ?Recorded ?Confirmed ?Last Taken ?Type albuterol sulfate 90 mcg/actuation 1 puff inhalation Q6H PRN wheezing 07/01/24 07/01/24 Unknown History aerosol inhaler (Ventolin HFA) escitalopram oxalate 5 mg tablet 5 mg PO DAILY 07/01/24 07/01/24 Unknown History Physical Exam Vital Signs: Vital Signs: Last Vital Signs Temp 98.2 F 07/10/24 08:00 Pulse 69 07/10/24 08:00 Resp 16 07/10/24 08:00 BP 143/77 H 07/10/24 08:00 Pulse Ox 97 07/10/24 08:00 O2 Del Method Room Air 07/10/24 08:00 BMI result Body Mass Index 35.4 Const: General: healthy appearing, no acute distress and well developed Orientation/consciousness: patient oriented x3 HEENT: Head: Yes normocephalic and Yes atraumatic Eyes: Conjunctivae: conjunctivae normal Neck: Neck: Yes normal visual inspection Chest: Chest palpation & inspection: normal inspection of the chest Resp: Effort & Inspection: normal respiratory effort GI: Inspection: Yes normal to inspection : Other: testes- exam, no cellulitis or discrete mass palpated Penis: normal penis and uncircumcised Scrotum: scrotum normal Neuro: General: patient oriented x3 Extrem: General: No pedal edema Psych: Appearance: grossly normal Affect: normal affect Results Labs 07/01/24 21:31 07/01/24 21:31 Labs: Urine 07/01/24 07/09/24 Range/Units 22:59 06:05 Urine Color Dark Yellow Yellow Urine Appearance Turbid Clear Urine pH 5.5 5.5 (5.0-9.0) Ur Specific [place] >= 1.030 H >= 1.030 H (1.005-1.025) Urine Protein 100 (2+) H Negative (Neg-Trace) mg/dL Urine Glucose (UA) Negative Negative (Negative) mg/dL All other labs normal. Assessment and Plan (1) Testicular pain, right: Status: Acute Plan UA-07/09/24- Negative, Chylm/Cr screening negative US scrotum Procedures Date of Service Date of Service: 07/10/24
--- NOTE | 2024-07-10 13:05 | HO.PSYCHPN ---
Subjective Subjective Date of Service: 07/10/24 Reason For Visit: Schizophrenia, Cannabis use disorder Subjective Notes: Conditional Voluntary Healthcare Proxy: No Guardianship: No Medical Problems Affecting Mental Status: No Interim History: Retracted three day notice. Some smiling, laughing. Seen by urology which is much appreciated. Pt with relief. He will have an ultrasound this afternoon and states he feels relief with this consult being done. Denies med SE, reports some relief from persecuatory thoughts. Medication Compliance: Yes Side effects from medications: No Attending Groups: No Review of Systems Review of Systems Testicular pain Mental Status Exam Mental Status Exam Patient Appearance: Appropriate Patient Orientation: Person, Place, Time and Situation Level of Consciousness: Awake and Appropriate Patient Behavior: Guarded, Passive and Poor Eye Contact Mood Description: Fearful Affect Description: Blunted Patient Cognition Impaired: No Ability to Follow Directions: Fair Speech Pattern: Clear Hallucinations: None Delusions: Paranoid Ideation Thought Process: Intact and Goal Oriented Thought Content: positive for [place] and positive for Poverty of Content Depressive Symptoms: Unhappiness Judgement: Fair Diagnostics Vital Signs (24Hr): Vital Signs - 24 hr 07/09/24 20:00 07/10/24 08:00 Temperature 97.8 F 98.2 F Pulse Rate 64 69 Respiratory Rate 16 16 Blood Pressure 130/82 143/77 H Pulse Oximetry 99 97 Oxygen Delivery Method Room Air Room Air BMI result Body Mass Index 35.4 Labs 07/01/24 21:31 07/01/24 21:31 Labs: Laboratory Results - last 48 hr 07/09/24 06:05 Urine Color Yellow Urine Appearance Clear Urine pH 5.5 Ur Specific [place] >= 1.030 H Urine Protein Negative Urine Glucose (UA) Negative Urine Ketones Trace Urine Blood Negative Urine Nitrite Negative Ur Leukocyte Esterase Negative Chlam trachomat DNA PCR NOT DETECTED N.gonorrhoeae DNA (PCR) NOT DETECTED Medications Medications Current Medications Acetaminophen (Acetaminophen 325 Mg Tablet) 650 mg PO Q6H PRN PRN Reason: Headache/Pain, Scale 1-10 Last Admin: 07/10/24 11:46 Dose: 650 mg Al Hydroxide/Mg Hydroxide (Magnesium Hydrox/Alum Hydrox 30 Ml Oral.Susp) 30 ml PO Q6H PRN PRN Reason: Heartburn/Nausea Last Admin: 07/05/24 10:56 Dose: 30 ml Albuterol Sulfate (Albuterol Sulfate 90 Mcg 8 Gm Inhaler) 1 puff INHALE Q6H PRN PRN Reason: wheezing Albuterol Sulfate (Albuterol Sulfate 90 Mcg 8 Gm Inhaler) 2 puff INHALE RQ6H PRN PRN Reason: Shortness of Breath/Wheezing Benztropine Mesylate (Benztropine Mesylate 1 Mg Tablet) 1 mg PO BID [facility] Last Admin: 07/10/24 08:15 Dose: 1 mg Escitalopram Oxalate (Escitalopram Oxalate 5 Mg Tablet) 5 mg PO DAILY [facility] Last Admin: 07/10/24 08:15 Dose: 5 mg Haloperidol (Haloperidol 5 Mg Tablet) 10 mg PO TID [facility] Last Admin: 07/10/24 08:15 Dose: 10 mg Hydrocortisone (Hydrocortisone 1 % Cream 28.35 Gm Tube) 1 appl TOPICAL BID [facility]; Protocol Last Admin: 07/10/24 08:18 Dose: 1 appl Hydroxyzine HCl (Hydroxyzine Hcl 25 Mg Tablet) 25 mg PO Q6H PRN PRN Reason: mild anxiety Last Admin: 07/10/24 08:17 Dose: 25 mg Lorazepam (Lorazepam 1 Mg Tablet) 2 mg PO Q4H PRN PRN Reason: anxiety/restlessness Last Admin: 07/04/24 14:34 Dose: 2 mg Magnesium Hydroxide (Milk Of Magnesia 30 Ml Oral.Susp) 30 ml PO DAILY PRN PRN Reason: Constipation Nicotine Polacrilex (Nicotine Polacrilex 2 Mg Gum) 4 mg BUCCAL Q2H PRN PRN Reason: Nicotine Cravings Olanzapine (Olanzapine 5 Mg Tablet) 5 mg PO Q4H PRN PRN Reason: agitation; psychosis Last Admin: 07/09/24 09:10 Dose: 5 mg Trazodone HCl (Trazodone Hcl 50 Mg Tablet) 50 mg PO BEDTIME MRX1 PRN PRN Reason: Insomnia Allergies Allergies Allergy/AdvReac Type Severity Reaction Status Date / Time cat dander Allergy Intermediate Runny Nose Verified 07/03/24 22:30 dog dander Allergy Intermediate Runny Nose Verified 07/03/24 22:30 pollen extracts Allergy Intermediate Itchy Eyes Verified 07/03/24 22:30 shellfish derived [shellfish] Allergy Anaphylaxis Verified 07/01/24 21:16 Assessment & Plan Assessment & Plan (1) Chronic schizophrenia: Status: Acute Code(s): F20.9 - Schizophrenia, unspecified Assessment and Plan: 07/10/24 Continue regime/plan. Pt retracted TDN. (2) Cannabis dependence: Status: Acute Code(s): F12.20 - Cannabis dependence, uncomplicated Plan UA-07/09/24- Negative, Chylm/Cr screening negative US scrotum Reason for continued inpatient stay Substantial Risk for: rapid decompensation Time Spent With Patient Time: Total time managing care of this patient today ____ minutes.
[2024-07-10 20:00] VITALS: RESP 16
[2024-07-11 08:00] VITALS: BP 139/61; PULSE 74; RESP 18; TEMP 37.2; O2SAT 98
[2024-07-11] MEDS: Escitalopram Oxalate 5 MG TABLET PO (08:20)
[2024-07-11] MEDS: Benztropine Mesylate 1 MG TABLET PO ×2 (08:20→21:17)
[2024-07-11] MEDS: HaloperidoL 5 MG TABLET 10 MG PO ×3 (08:20→21:17)
[2024-07-11] MEDS: Hydrocortisone 1 % Cream 28.35 GM TUBE 1 APPL TOPICAL (08:25)
--- NOTE | 2024-07-11 09:56 | HO.PSYCHPN ---
Subjective Subjective Date of Service: 07/11/24 Reason For Visit: Schizophrenia, Cannabis use disorder Subjective Notes: Conditional Voluntary Healthcare Proxy: No Guardianship: No Medical Problems Affecting Mental Status: No Interim History: Tired today, reporting DAMIEN. Some more time in milieu with anxiety. Three day notice retracted SI is passive Reports feeling some relief with med increases Medication Compliance: Yes Side effects from medications: No Attending Groups: Intermittent Review of Systems Acute medical concerns: No Review of Systems Review of Systems Denies Mental Status Exam Mental Status Exam Patient Appearance: Appropriate Patient Orientation: Person, Place, Time and Situation Level of Consciousness: Awake and Appropriate Patient Behavior: Guarded, Passive and Poor Eye Contact Mood Description: Fearful Affect Description: Blunted Patient Cognition Impaired: No Ability to Follow Directions: Fair Speech Pattern: Clear Hallucinations: None Delusions: Paranoid Ideation Thought Process: Intact and Goal Oriented Thought Content: positive for [place] and positive for Poverty of Content Depressive Symptoms: Unhappiness Judgement: Fair Diagnostics Vital Signs (24Hr): Vital Signs - 24 hr 07/10/24 20:00 07/11/24 08:00 Temperature 98.9 F Pulse Rate 74 Respiratory Rate 16 18 Blood Pressure 139/61 Pulse Oximetry 98 Oxygen Delivery Method Room Air BMI result Body Mass Index 35.4 Labs 07/01/24 21:31 07/01/24 21:31 Imaging Radiology Impressions: ITS Impressions Scrotum Ultrasound 07/10/24 16:06 IMPRESSION: 1. Testicular microlithiasis identified bilaterally. 2. Otherwise normal bilateral testicular ultrasound. Electronically signed by: Chicho Montez MD 07/10/2024 04:34 PM EDT RP Scrotum Ultrasound 07/10/24 16:06 IMPRESSION: 1. Testicular microlithiasis identified bilaterally. 2. Otherwise normal bilateral testicular ultrasound. Electronically signed by: Chicho Montez MD 07/10/2024 04:34 PM EDT RP Medications Medications Current Medications Acetaminophen (Acetaminophen 325 Mg Tablet) 650 mg PO Q6H PRN PRN Reason: Headache/Pain, Scale 1-10 Last Admin: 07/10/24 11:46 Dose: 650 mg Al Hydroxide/Mg Hydroxide (Magnesium Hydrox/Alum Hydrox 30 Ml Oral.Susp) 30 ml PO Q6H PRN PRN Reason: Heartburn/Nausea Last Admin: 07/05/24 10:56 Dose: 30 ml Albuterol Sulfate (Albuterol Sulfate 90 Mcg 8 Gm Inhaler) 1 puff INHALE Q6H PRN PRN Reason: wheezing Albuterol Sulfate (Albuterol Sulfate 90 Mcg 8 Gm Inhaler) 2 puff INHALE RQ6H PRN PRN Reason: Shortness of Breath/Wheezing Benztropine Mesylate (Benztropine Mesylate 1 Mg Tablet) 1 mg PO BID [facility] Last Admin: 07/11/24 08:20 Dose: 1 mg Escitalopram Oxalate (Escitalopram Oxalate 5 Mg Tablet) 5 mg PO DAILY [facility] Last Admin: 07/11/24 08:20 Dose: 5 mg Haloperidol (Haloperidol 5 Mg Tablet) 10 mg PO TID [facility] Last Admin: 07/11/24 08:20 Dose: 10 mg Hydrocortisone (Hydrocortisone 1 % Cream 28.35 Gm Tube) 1 appl TOPICAL BID [facility]; Protocol Last Admin: 07/11/24 08:25 Dose: 1 appl Hydroxyzine HCl (Hydroxyzine Hcl 25 Mg Tablet) 25 mg PO Q6H PRN PRN Reason: mild anxiety Last Admin: 07/10/24 08:17 Dose: 25 mg Lorazepam (Lorazepam 1 Mg Tablet) 2 mg PO Q4H PRN PRN Reason: anxiety/restlessness Last Admin: 07/04/24 14:34 Dose: 2 mg Magnesium Hydroxide (Milk Of Magnesia 30 Ml Oral.Susp) 30 ml PO DAILY PRN PRN Reason: Constipation Nicotine Polacrilex (Nicotine Polacrilex 2 Mg Gum) 4 mg BUCCAL Q2H PRN PRN Reason: Nicotine Cravings Olanzapine (Olanzapine 5 Mg Tablet) 5 mg PO Q4H PRN PRN Reason: agitation; psychosis Last Admin: 07/09/24 09:10 Dose: 5 mg Trazodone HCl (Trazodone Hcl 50 Mg Tablet) 50 mg PO BEDTIME MRX1 PRN PRN Reason: Insomnia Allergies Allergies Allergy/AdvReac Type Severity Reaction Status Date / Time cat dander Allergy Intermediate Runny Nose Verified 07/03/24 22:30 dog dander Allergy Intermediate Runny Nose Verified 07/03/24 22:30 pollen extracts Allergy Intermediate Itchy Eyes Verified 07/03/24 22:30 shellfish derived [shellfish] Allergy Anaphylaxis Verified 07/01/24 21:16 Assessment & Plan Assessment & Plan (1) Chronic schizophrenia: Status: Acute Code(s): F20.9 - Schizophrenia, unspecified Assessment and Plan: 07/10/24 Continue regime/plan. Pt retracted TDN. 07/11/24 Continue regime/plan. Encourage milieu activity (2) Cannabis dependence: Status: Acute Code(s): F12.20 - Cannabis dependence, uncomplicated Plan UA-07/09/24- Negative, Chylm/Cr screening negative US scrotum Reason for continued inpatient stay Substantial Risk for: rapid decompensation Time Spent With Patient Time: Total time managing care of this patient today ____ minutes.
--- NOTE | 2024-07-11 12:54 | P.PNUR_ITS ---
Subjective Subjective Date of Service: 07/11/24 Interval history: Follow-up right testicular pain. Testicular ultrasound: Normal flow, bilateral microlithiasis, otherwise normal. Based on ultrasound results no further urological intervention indicated, conservative management for chronic testicular pain with NSAIDs PRN. Physical Exam 2 Vital Signs: Vital Signs: Last Vital Signs Temp 98.9 F 07/11/24 08:00 Pulse 74 07/11/24 08:00 Resp 18 07/11/24 08:00 BP 139/61 07/11/24 08:00 Pulse Ox 98 07/11/24 08:00 O2 Del Method Room Air 07/11/24 08:00 BMI result Body Mass Index 35.4 Urology Results Labs 07/01/24 21:31 07/01/24 21:31 Labs: Date of Service: 07/10/24 EXAMINATION: US SCROTUM CLINICAL INFORMATION: Right testicular pain.. COMPARISON: None available. TECHNIQUE: A sonogram of the scrotum was performed assessing zaman-scale appearance and color Doppler flow. Spectral Doppler analysis of the arterial and venous flow were performed in the testes bilaterally. FINDINGS: RIGHT: Right testicle measures 4.6 x 2.3 x 2.8 cm, volume 15.6 mL. No focal testicular parenchymal lesions are visualized. There are innumerable tiny punctate calcifications in the right testis, meeting criteria for microlithiasis. Spectral Doppler analysis of the arterial and venous flow is normal in the right testis. Right epididymal head is normal in size. No right hydrocele or varicocele is seen. Right epididymal Doppler flow is normal. LEFT: Left testicle measures 4.2 x 1.9 x 3.0 cm, volume 12.2 mL. No focal testicular parenchymal lesions are visualized. There are innumerable tiny punctate calcifications in the left testis, meeting criteria for microlithiasis. Spectral Doppler analysis of the arterial and venous flow is normal in the left testis. Left epididymal head is normal in size. No left hydrocele or varicocele is seen. Left epididymal Doppler flow is normal. IMPRESSION: 1. Testicular microlithiasis identified bilaterally. 2. Otherwise normal bilateral testicular ultrasound. Progress Note: A&P Assessment and plan (1) Testicular pain, right: Status: Acute Plan Testicular ultrasound: Normal flow, bilateral microlithiasis, otherwise normal. Based on ultrasound results no further urological intervention indicated, conservative management for chronic testicular pain with NSAIDs PRN. Time Spent With Patient Time: Total time managing care of this patient today ____ minutes.
[2024-07-11 19:42] VITALS: BP 148/78; PULSE 80; RESP 16; TEMP 36.9; O2SAT 95
[2024-07-11] MEDS: Acetaminophen 325 MG TABLET 650 MG PO (21:17)
[2024-07-12 08:04] VITALS: BP 96/58; PULSE 86; RESP 16; TEMP 37.1; O2SAT 97
[2024-07-12] MEDS: HaloperidoL 5 MG TABLET 10 MG PO ×3 (08:24→22:39)
[2024-07-12] MEDS: Escitalopram Oxalate 5 MG TABLET PO (08:24)
[2024-07-12] MEDS: Benztropine Mesylate 1 MG TABLET PO ×2 (08:24→22:39)
--- NOTE | 2024-07-12 10:03 | P.PNPSI_ITS ---
Subjective Subjective Date of Service: 07/12/24 Reason For Visit: Schizophrenia, Cannabis use disorder Subjective Notes: Conditional Voluntary Healthcare Proxy: No Guardianship: Yes (mom will apply) Medical Problems Affecting Mental Status: No Interim History: In the milieu, attending groups. Reports no AVH. Identifies anxiety, fear and insomnia as main issues to work with. I am better, I can think clearly. Medication Compliance: Yes Side effects from medications: No Attending Groups: Yes Review of Systems Acute medical concerns: No Review of Systems Review of Systems Denies Mental Status Exam Mental Status Exam Patient Appearance: Appropriate Patient Orientation: Person, Place, Time and Situation Level of Consciousness: Awake and Appropriate Patient Behavior: Passive and Good Eye Contact Mood Description: Anxious and Apprehensive Affect Description: Anxious and Apprehensive Patient Cognition Impaired: No Ability to Follow Directions: Fair Speech Pattern: Clear Memory Description: Intact and Episodic Impaired Hallucinations: None Delusions: Present Thought Process: Intact and Goal Oriented Thought Content: positive for [place] Depressive Symptoms: Increased Anxiety Judgement: Fair Diagnostics Vital Signs (24Hr): Vital Signs - 24 hr 07/11/24 19:42 07/12/24 08:04 Temperature 98.4 F 98.7 F Pulse Rate 80 86 Respiratory Rate 16 16 Blood Pressure 148/78 H 96/58 L Pulse Oximetry 95 97 Oxygen Delivery Method Room Air Room Air BMI result Body Mass Index 35.4 Labs 07/01/24 21:31 07/01/24 21:31 Imaging Radiology Impressions: ITS Impressions Scrotum Ultrasound 07/10/24 16:06 IMPRESSION: 1. Testicular microlithiasis identified bilaterally. 2. Otherwise normal bilateral testicular ultrasound. Electronically signed by: Chicho Montez MD 07/10/2024 04:34 PM EDT RP Scrotum Ultrasound 07/10/24 16:06 IMPRESSION: 1. Testicular microlithiasis identified bilaterally. 2. Otherwise normal bilateral testicular ultrasound. Electronically signed by: Chicho Montez MD 07/10/2024 04:34 PM EDT Medications Medications Current Medications Acetaminophen (Acetaminophen 325 Mg Tablet) 650 mg PO Q6H PRN PRN Reason: Headache/Pain, Scale 1-10 Last Admin: 07/11/24 21:17 Dose: 650 mg Al Hydroxide/Mg Hydroxide (Magnesium Hydrox/Alum Hydrox 30 Ml Oral.Susp) 30 ml PO Q6H PRN PRN Reason: Heartburn/Nausea Last Admin: 07/05/24 10:56 Dose: 30 ml Albuterol Sulfate (Albuterol Sulfate 90 Mcg 8 Gm Inhaler) 1 puff INHALE Q6H PRN PRN Reason: wheezing Albuterol Sulfate (Albuterol Sulfate 90 Mcg 8 Gm Inhaler) 2 puff INHALE RQ6H PRN PRN Reason: Shortness of Breath/Wheezing Benztropine Mesylate (Benztropine Mesylate 1 Mg Tablet) 1 mg PO BID [facility] Last Admin: 07/12/24 08:24 Dose: 1 mg Escitalopram Oxalate (Escitalopram Oxalate 5 Mg Tablet) 5 mg PO DAILY [facility] Last Admin: 07/12/24 08:24 Dose: 5 mg Haloperidol (Haloperidol 5 Mg Tablet) 10 mg PO TID [facility] Last Admin: 07/12/24 08:24 Dose: 10 mg Hydrocortisone (Hydrocortisone 1 % Cream 28.35 Gm Tube) 1 appl TOPICAL BID [facility]; Protocol Last Admin: 07/11/24 21:21 Dose: Not Given Hydroxyzine HCl (Hydroxyzine Hcl 25 Mg Tablet) 25 mg PO Q6H PRN PRN Reason: mild anxiety Last Admin: 07/10/24 08:17 Dose: 25 mg Lorazepam (Lorazepam 1 Mg Tablet) 2 mg PO Q4H PRN PRN Reason: anxiety/restlessness Last Admin: 07/04/24 14:34 Dose: 2 mg Magnesium Hydroxide (Milk Of Magnesia 30 Ml Oral.Susp) 30 ml PO DAILY PRN PRN Reason: Constipation Nicotine Polacrilex (Nicotine Polacrilex 2 Mg Gum) 4 mg BUCCAL Q2H PRN PRN Reason: Nicotine Cravings Olanzapine (Olanzapine 5 Mg Tablet) 5 mg PO Q4H PRN PRN Reason: agitation; psychosis Last Admin: 07/09/24 09:10 Dose: 5 mg Trazodone HCl (Trazodone Hcl 50 Mg Tablet) 50 mg PO BEDTIME MRX1 PRN PRN Reason: Insomnia Allergies Allergies Allergy/AdvReac Type Severity Reaction Status Date / Time cat dander Allergy Intermediate Runny Nose Verified 07/03/24 22:30 dog dander Allergy Intermediate Runny Nose Verified 07/03/24 22:30 pollen extracts Allergy Intermediate Itchy Eyes Verified 07/03/24 22:30 shellfish derived [shellfish] Allergy Anaphylaxis Verified 07/01/24 21:16 Assessment & Plan Assessment & Plan (1) Testicular pain, right: Status: Acute Code(s): N50.811 - Right testicular pain (2) Chronic schizophrenia: Status: Acute Code(s): F20.9 - Schizophrenia, unspecified Assessment and Plan: 07/12: Reports fear, anxiety, insomnia as sx to work on. Depakote ER 500 mg HS trial DC Trazodone Mirtazapine 7.5 mg HS for sleep, anxiety (3) Cannabis dependence: Status: Acute Code(s): F12.20 - Cannabis dependence, uncomplicated Plan Testicular ultrasound: Normal flow, bilateral microlithiasis, otherwise normal. Based on ultrasound results no further urological intervention indicated, conservative management for chronic testicular pain with NSAIDs PRN. Reason for continued inpatient stay Substantial Risk for: rapid decompensation Time Spent With Patient Time: Total time managing care of this patient today ____ minutes.
[2024-07-12 20:00] VITALS: BP 143/65; PULSE 103; TEMP 36.4; O2SAT 98
[2024-07-12] MEDS: Mirtazapine 7.5 MG TABLET PO (22:39)
[2024-07-12] MEDS: Divalproex Sodium ER 500 MG TAB.ER.24H PO (22:41)
--- NOTE | 2024-07-13 07:24 | P.PNPSI_ITS ---
Subjective Subjective Date of Service: 07/13/24 Reason For Visit: Schizophrenia, Cannabis use disorder Subjective Notes: Conditional Voluntary Interim History: I think we are getting it. I am feeling better. Reports some improvement. Continues to be visable in milieu-social with room- mate and select peers. Questions about a peer who discharged on 07/12 and we were able to do some reality testing on this peer not having a motive to bully/harm pt. Medication Compliance: Yes Side effects from medications: No Attending Groups: Yes Review of Systems Acute medical concerns: No Review of Systems Review of Systems Denies Mental Status Exam Mental Status Exam Patient Appearance: Appropriate Patient Orientation: Person, Place, Time and Situation Level of Consciousness: Awake and Appropriate Patient Behavior: Passive and Good Eye Contact Mood Description: Anxious and Apprehensive Affect Description: Anxious and Apprehensive Patient Cognition Impaired: No Ability to Follow Directions: Fair Speech Pattern: Clear Memory Description: Intact and Episodic Impaired Hallucinations: None Delusions: Present Thought Process: Intact and Goal Oriented Thought Content: positive for [place] Depressive Symptoms: Increased Anxiety Judgement: Fair Diagnostics Vital Signs (24Hr): Vital Signs - 24 hr 07/12/24 08:04 07/12/24 20:00 Temperature 98.7 F 97.5 F Pulse Rate 86 103 H Respiratory Rate 16 Blood Pressure 96/58 L 143/65 H Pulse Oximetry 97 98 Oxygen Delivery Method Room Air Room Air BMI result Body Mass Index 35.4 Labs 07/01/24 21:31 07/01/24 21:31 Imaging Radiology Impressions: ITS Impressions Scrotum Ultrasound 07/10/24 16:06 IMPRESSION: 1. Testicular microlithiasis identified bilaterally. 2. Otherwise normal bilateral testicular ultrasound. Electronically signed by: Chicho Montez MD 07/10/2024 04:34 PM EDT Scrotum Ultrasound 07/10/24 16:06 IMPRESSION: 1. Testicular microlithiasis identified bilaterally. 2. Otherwise normal bilateral testicular ultrasound. Electronically signed by: Chicho Montez MD 07/10/2024 04:34 PM EDT Medications Medications Current Medications Acetaminophen (Acetaminophen 325 Mg Tablet) 650 mg PO Q6H PRN PRN Reason: Headache/Pain, Scale 1-10 Last Admin: 07/11/24 21:17 Dose: 650 mg Al Hydroxide/Mg Hydroxide (Magnesium Hydrox/Alum Hydrox 30 Ml Oral.Susp) 30 ml PO Q6H PRN PRN Reason: Heartburn/Nausea Last Admin: 07/05/24 10:56 Dose: 30 ml Albuterol Sulfate (Albuterol Sulfate 90 Mcg 8 Gm Inhaler) 1 puff INHALE Q6H PRN PRN Reason: wheezing Albuterol Sulfate (Albuterol Sulfate 90 Mcg 8 Gm Inhaler) 2 puff INHALE RQ6H PRN PRN Reason: Shortness of Breath/Wheezing Benztropine Mesylate (Benztropine Mesylate 1 Mg Tablet) 1 mg PO BID [facility] Last Admin: 07/12/24 22:39 Dose: 1 mg Divalproex Sodium (Divalproex Sodium Er 500 Mg Tab.Er.24h) 500 mg PO BEDTIME [facility] Last Admin: 07/12/24 22:41 Dose: 500 mg Escitalopram Oxalate (Escitalopram Oxalate 5 Mg Tablet) 5 mg PO DAILY [facility] Last Admin: 07/12/24 08:24 Dose: 5 mg Haloperidol (Haloperidol 5 Mg Tablet) 10 mg PO TID [facility] Last Admin: 07/12/24 22:39 Dose: 10 mg Hydrocortisone (Hydrocortisone 1 % Cream 28.35 Gm Tube) 1 appl TOPICAL BID [facility]; Protocol Last Admin: 07/12/24 23:38 Dose: Not Given Hydroxyzine HCl (Hydroxyzine Hcl 25 Mg Tablet) 25 mg PO Q6H PRN PRN Reason: mild anxiety Last Admin: 07/10/24 08:17 Dose: 25 mg Lorazepam (Lorazepam 1 Mg Tablet) 2 mg PO Q4H PRN PRN Reason: anxiety/restlessness Last Admin: 07/04/24 14:34 Dose: 2 mg Magnesium Hydroxide (Milk Of Magnesia 30 Ml Oral.Susp) 30 ml PO DAILY PRN PRN Reason: Constipation Mirtazapine (Mirtazapine 7.5 Mg Tablet) 7.5 mg PO BEDTIME [facility] Last Admin: 07/12/24 22:39 Dose: 7.5 mg Nicotine Polacrilex (Nicotine Polacrilex 2 Mg Gum) 4 mg BUCCAL Q2H PRN PRN Reason: Nicotine Cravings Olanzapine (Olanzapine 5 Mg Tablet) 5 mg PO Q4H PRN PRN Reason: agitation; psychosis Last Admin: 07/09/24 09:10 Dose: 5 mg Allergies Allergies Allergy/AdvReac Type Severity Reaction Status Date / Time cat dander Allergy Intermediate Runny Nose Verified 07/03/24 22:30 dog dander Allergy Intermediate Runny Nose Verified 07/03/24 22:30 pollen extracts Allergy Intermediate Itchy Eyes Verified 07/03/24 22:30 shellfish derived [shellfish] Allergy Anaphylaxis Verified 07/01/24 21:16 Assessment & Plan Assessment & Plan (1) Testicular pain, right: Status: Acute Code(s): N50.811 - Right testicular pain (2) Chronic schizophrenia: Status: Acute Code(s): F20.9 - Schizophrenia, unspecified Assessment and Plan: 07/12: Reports fear, anxiety, insomnia as sx to work on. Depakote ER 500 mg HS trial DC Trazodone Mirtazapine 7.5 mg HS for sleep, anxiety 07/13 Continue treatment (3) Cannabis dependence: Status: Acute Code(s): F12.20 - Cannabis dependence, uncomplicated Plan Testicular ultrasound: Normal flow, bilateral microlithiasis, otherwise normal. Based on ultrasound results no further urological intervention indicated, conservative management for chronic testicular pain with NSAIDs PRN. Reason for continued inpatient stay Substantial Risk for: rapid decompensation Time Spent With Patient Time: Total time managing care of this patient today ____ minutes.
[2024-07-13 08:00] VITALS: BP 137/63; PULSE 99; RESP 16; TEMP 37.1; O2SAT 96
[2024-07-13] MEDS: HaloperidoL 5 MG TABLET 10 MG PO ×3 (09:06→20:52)
[2024-07-13] MEDS: Escitalopram Oxalate 5 MG TABLET PO (09:07)
[2024-07-13] MEDS: Hydrocortisone 1 % Cream 28.35 GM TUBE 1 APPL TOPICAL (09:07)
[2024-07-13] MEDS: Benztropine Mesylate 1 MG TABLET PO ×2 (09:07→20:52)
[2024-07-13] MEDS: hydrOXYzine HCL 25 MG TABLET PO (14:27)
[2024-07-13] MEDS: OLANZapine 5 MG TABLET PO (14:27)
[2024-07-13] MEDS: Divalproex Sodium ER 500 MG TAB.ER.24H PO (20:52)
[2024-07-13] MEDS: Mirtazapine 7.5 MG TABLET PO (20:52)
[2024-07-13] MEDS: Acetaminophen 325 MG TABLET 650 MG PO (20:54)
[2024-07-13 21:00] VITALS: BP 126/60; PULSE 94; TEMP 36.3; O2SAT 98
--- NOTE | 2024-07-14 05:42 | P.PNPSI_ITS ---
Subjective Subjective Date of Service: 07/14/24 Reason For Visit: Schizophrenia, Cannabis use disorder Interim History: Pt seen, discussed with the team. Denies SI. Anxiety-Depression 07/09. Continues to talk about peer who was discharged 07/12 and his concerns. Reports between 1145am-3pm increase in sx, feeling medicated before 9pm and unable to sleep. Able to give more specifics regarding sx mgt with improved focus Medication Compliance: Yes Side effects from medications: No Attending Groups: Yes Review of Systems Acute medical concerns: No Review of Systems Review of Systems Denies Mental Status Exam Mental Status Exam Patient Appearance: Appropriate Patient Orientation: Person, Place, Time and Situation Level of Consciousness: Awake and Appropriate Patient Behavior: Passive and Good Eye Contact Mood Description: Constricted Affect Description: Constricted Patient Cognition Impaired: No Ability to Follow Directions: Good Speech Pattern: Clear Memory Description: Intact and Episodic Impaired Hallucinations: None Perceptual Disturbances: Depersonalization and Derealization (concerns about peer who was discharged and interactions with him) Thought Process: Intact and Goal Oriented Thought Content: positive for [place] and positive for [place] Depressive Symptoms: Increased Anxiety (appears decreased today) Judgement: Fair Diagnostics Vital Signs (24Hr): Vital Signs - 24 hr 07/13/24 08:00 07/13/24 21:00 Temperature 98.7 F 97.4 F Pulse Rate 99 94 Respiratory Rate 16 Blood Pressure 137/63 126/60 Pulse Oximetry 96 98 Oxygen Delivery Method Room Air BMI result Body Mass Index 35.4 Labs 07/01/24 21:31 07/01/24 21:31 Imaging Radiology Impressions: ITS Impressions Scrotum Ultrasound 07/10/24 16:06 IMPRESSION: 1. Testicular microlithiasis identified bilaterally. 2. Otherwise normal bilateral testicular ultrasound. Electronically signed by: Chicho Montez MD 07/10/2024 04:34 PM EDT RP Scrotum Ultrasound 07/10/24 16:06 IMPRESSION: 1. Testicular microlithiasis identified bilaterally. 2. Otherwise normal bilateral testicular ultrasound. Electronically signed by: Chicho Montez MD 07/10/2024 04:34 PM EDT RP Medications Medications Current Medications Acetaminophen (Acetaminophen 325 Mg Tablet) 650 mg PO Q6H PRN PRN Reason: Headache/Pain, Scale 1-10 Last Admin: 07/13/24 20:54 Dose: 650 mg Al Hydroxide/Mg Hydroxide (Magnesium Hydrox/Alum Hydrox 30 Ml Oral.Susp) 30 ml PO Q6H PRN PRN Reason: Heartburn/Nausea Last Admin: 07/05/24 10:56 Dose: 30 ml Albuterol Sulfate (Albuterol Sulfate 90 Mcg 8 Gm Inhaler) 1 puff INHALE Q6H PRN PRN Reason: wheezing Albuterol Sulfate (Albuterol Sulfate 90 Mcg 8 Gm Inhaler) 2 puff INHALE RQ6H PRN PRN Reason: Shortness of Breath/Wheezing Benztropine Mesylate (Benztropine Mesylate 1 Mg Tablet) 1 mg PO BID [facility] Last Admin: 07/13/24 20:52 Dose: 1 mg Divalproex Sodium (Divalproex Sodium Er 500 Mg Tab.Er.24h) 500 mg PO BEDTIME [facility] Last Admin: 07/13/24 20:52 Dose: 500 mg Escitalopram Oxalate (Escitalopram Oxalate 5 Mg Tablet) 5 mg PO DAILY [facility] Last Admin: 07/13/24 09:07 Dose: 5 mg Haloperidol (Haloperidol 5 Mg Tablet) 10 mg PO TID [facility] Last Admin: 07/13/24 20:52 Dose: 10 mg Hydrocortisone (Hydrocortisone 1 % Cream 28.35 Gm Tube) 1 appl TOPICAL BID [facility]; Protocol Last Admin: 07/13/24 22:41 Dose: Not Given Hydroxyzine HCl (Hydroxyzine Hcl 25 Mg Tablet) 25 mg PO Q6H PRN PRN Reason: mild anxiety Last Admin: 07/13/24 14:27 Dose: 25 mg Lorazepam (Lorazepam 1 Mg Tablet) 2 mg PO Q4H PRN PRN Reason: anxiety/restlessness Last Admin: 07/04/24 14:34 Dose: 2 mg Magnesium Hydroxide (Milk Of Magnesia 30 Ml Oral.Susp) 30 ml PO DAILY PRN PRN Reason: Constipation Mirtazapine (Mirtazapine 7.5 Mg Tablet) 7.5 mg PO BEDTIME [facility] Last Admin: 07/13/24 20:52 Dose: 7.5 mg Nicotine Polacrilex (Nicotine Polacrilex 2 Mg Gum) 4 mg BUCCAL Q2H PRN PRN Reason: Nicotine Cravings Olanzapine (Olanzapine 5 Mg Tablet) 5 mg PO Q4H PRN PRN Reason: agitation; psychosis Last Admin: 07/13/24 14:27 Dose: 5 mg Allergies Allergies Allergy/AdvReac Type Severity Reaction Status Date / Time cat dander Allergy Intermediate Runny Nose Verified 07/03/24 22:30 dog dander Allergy Intermediate Runny Nose Verified 07/03/24 22:30 pollen extracts Allergy Intermediate Itchy Eyes Verified 07/03/24 22:30 shellfish derived [shellfish] Allergy Anaphylaxis Verified 07/01/24 21:16 Assessment & Plan Assessment & Plan (1) Testicular pain, right: Status: Acute Code(s): N50.811 - Right testicular pain (2) Chronic schizophrenia: Status: Acute Code(s): F20.9 - Schizophrenia, unspecified Assessment and Plan: 07/12: Reports fear, anxiety, insomnia as sx to work on. Depakote ER 500 mg HS trial DC Trazodone Mirtazapine 7.5 mg HS for sleep, anxiety 07/14: Consolidate Haldol from 10 mg tid to 15 mg bid Increase Depakote from 500 mg ER HS to bid DC Escitalopram Increase Remeron to 15 mg HS (3) Cannabis dependence: Status: Acute Code(s): F12.20 - Cannabis dependence, uncomplicated Plan Testicular ultrasound: Normal flow, bilateral microlithiasis, otherwise normal. Based on ultrasound results no further urological intervention indicated, conservative management for chronic testicular pain with NSAIDs PRN. Reason for continued inpatient stay Substantial Risk for: rapid decompensation Time Spent With Patient Time: Total time managing care of this patient today ____ minutes.
[2024-07-14 08:00] VITALS: BP 139/78; PULSE 84; RESP 18; TEMP 36.6; O2SAT 98
[2024-07-14] MEDS: Escitalopram Oxalate 5 MG TABLET PO (08:22)
[2024-07-14] MEDS: HaloperidoL 5 MG TABLET 10 MG PO ×2 (08:23→14:14)
[2024-07-14] MEDS: Benztropine Mesylate 1 MG TABLET PO ×2 (08:25→20:55)
[2024-07-14 19:34] VITALS: BP 123/58; PULSE 84; RESP 97; TEMP 36.3; O2SAT 97
[2024-07-14] MEDS: Hydrocortisone 1 % Cream 28.35 GM TUBE 1 APPL TOPICAL (20:35)
[2024-07-14] MEDS: Divalproex Sodium ER 500 MG TAB.ER.24H PO (20:35)
[2024-07-14] MEDS: Mirtazapine 15 MG TABLET PO (20:56)
[2024-07-15] MEDS: LORazepam 1 MG TABLET 2 MG PO (04:50)
[2024-07-15] MEDS: Albuterol Sulfate 90 MCG 8 GM INHALER 2 PUFF INHALE (06:05)
[2024-07-15 08:00] VITALS: BP 134/88; PULSE 99; RESP 18; TEMP 36.9; O2SAT 98
[2024-07-15] MEDS: Benztropine Mesylate 1 MG TABLET PO ×2 (08:25→20:28)
[2024-07-15] MEDS: Divalproex Sodium ER 500 MG TAB.ER.24H PO ×2 (08:25→20:28)
[2024-07-15] MEDS: HaloperidoL 5 MG TABLET 15 MG PO ×2 (08:25→20:28)
--- NOTE | 2024-07-15 15:15 | HO.PSYCHPN ---
Subjective Subjective Date of Service: 07/15/24 Reason For Visit: Schizophrenia, Cannabis use disorder Interim History: Patient reports feeling good and better ; pt stated, I feel like the meds are helping. I feel like I can breathe . denies SI/HI/VH/AH. Patient reports he has been trying to attend groups. Continue current tx plan. Medication Compliance: Yes Side effects from medications: No Attending Groups: Yes Mental Status Exam Mental Status Exam Patient Appearance: Well Grooomed Patient Orientation: Person, Place, Time and Situation Level of Consciousness: Awake and Alert Patient Behavior: Appropriate, Cooperative and Good Eye Contact Mood Description: Calm Affect Description: Calm Ability to Follow Directions: Good Speech Pattern: Clear and Appropriate Memory Description: Intact Hallucinations: None Delusions: Not Present Thought Process: Intact Thought Content: positive for Intact Diagnostics Vital Signs (24Hr): Vital Signs - 24 hr 07/14/24 19:34 07/15/24 08:00 Temperature 97.3 F 98.4 F Pulse Rate 84 99 Respiratory Rate 97 H 18 Blood Pressure 123/58 L 134/88 Pulse Oximetry 97 98 Oxygen Delivery Method Room Air Room Air BMI result Body Mass Index 35.4 Labs 07/01/24 21:31 07/01/24 21:31 Imaging Radiology Impressions: ITS Impressions Scrotum Ultrasound 07/10/24 16:06 IMPRESSION: 1. Testicular microlithiasis identified bilaterally. 2. Otherwise normal bilateral testicular ultrasound. Electronically signed by: Chicho Montez MD 07/10/2024 04:34 PM EDT Scrotum Ultrasound 07/10/24 16:06 IMPRESSION: 1. Testicular microlithiasis identified bilaterally. 2. Otherwise normal bilateral testicular ultrasound. Electronically signed by: Chicho Montez MD 07/10/2024 04:34 PM EDT Medications Medications Current Medications Acetaminophen (Acetaminophen 325 Mg Tablet) 650 mg PO Q6H PRN PRN Reason: Headache/Pain, Scale 1-10 Last Admin: 07/13/24 20:54 Dose: 650 mg Al Hydroxide/Mg Hydroxide (Magnesium Hydrox/Alum Hydrox 30 Ml Oral.Susp) 30 ml PO Q6H PRN PRN Reason: Heartburn/Nausea Last Admin: 07/05/24 10:56 Dose: 30 ml Albuterol Sulfate (Albuterol Sulfate 90 Mcg 8 Gm Inhaler) 2 puff INHALE RQ6H PRN PRN Reason: Shortness of Breath/Wheezing Last Admin: 07/15/24 06:05 Dose: 2 puff Benztropine Mesylate (Benztropine Mesylate 1 Mg Tablet) 1 mg PO BID [facility] Last Admin: 07/15/24 08:25 Dose: 1 mg Divalproex Sodium (Divalproex Sodium Er 500 Mg Tab.Er.24h) 500 mg PO BID [facility] Last Admin: 07/15/24 08:25 Dose: 500 mg Haloperidol (Haloperidol 5 Mg Tablet) 15 mg PO BID [facility] Last Admin: 07/15/24 08:25 Dose: 15 mg Hydrocortisone (Hydrocortisone 1 % Cream 28.35 Gm Tube) 1 appl TOPICAL BID [facility]; Protocol Last Admin: 07/15/24 08:27 Dose: Not Given Hydroxyzine HCl (Hydroxyzine Hcl 25 Mg Tablet) 25 mg PO Q6H PRN PRN Reason: mild anxiety Last Admin: 07/13/24 14:27 Dose: 25 mg Lorazepam (Lorazepam 1 Mg Tablet) 2 mg PO Q4H PRN PRN Reason: anxiety/restlessness Last Admin: 07/15/24 04:50 Dose: 2 mg Magnesium Hydroxide (Milk Of Magnesia 30 Ml Oral.Susp) 30 ml PO DAILY PRN PRN Reason: Constipation Mirtazapine (Mirtazapine 15 Mg Tablet) 15 mg PO BEDTIME [facility] Last Admin: 07/14/24 20:56 Dose: 15 mg Nicotine Polacrilex (Nicotine Polacrilex 2 Mg Gum) 4 mg BUCCAL Q2H PRN PRN Reason: Nicotine Cravings Olanzapine (Olanzapine 5 Mg Tablet) 5 mg PO Q4H PRN PRN Reason: agitation; psychosis Last Admin: 07/13/24 14:27 Dose: 5 mg Allergies Allergies Allergy/AdvReac Type Severity Reaction Status Date / Time cat dander Allergy Intermediate Runny Nose Verified 07/03/24 22:30 dog dander Allergy Intermediate Runny Nose Verified 07/03/24 22:30 pollen extracts Allergy Intermediate Itchy Eyes Verified 07/03/24 22:30 shellfish derived [shellfish] Allergy Anaphylaxis Verified 07/01/24 21:16 Assessment & Plan Assessment & Plan (1) Chronic schizophrenia: Status: Acute Code(s): F20.9 - Schizophrenia, unspecified (2) Eczema: Status: Acute Code(s): L30.9 - Dermatitis, unspecified (3) Cannabis dependence: Status: Acute Code(s): F12.20 - Cannabis dependence, uncomplicated Plan Patient is a 28-year-old male with past medical history of eczema, asthma and anaphylaxis with shellfish as well as allergies to pollen, cats, dogs and marijuana use daily was seen on the psychiatric unit for concerns of hypertension and testicular pain. Blood pressure has normalized to 116/64 and examination and interview with patient notes resolve of previous testicular pain experienced in the emergency department. Exam also reassuring. Hypertension -Blood pressure has stabilized to 116/64, monitor Q shift -No intervention required at this time -Follow-up with PCP in the outpatient setting Testicular pain, resolved on exam -UA with reflex ordered noting a mild leukocytosis of 11.7 on 07/01 -re-consult hospitalist if UA or culture are positive -recommend screen for chlamydia and gonorrhea via urine sample to rule out only, pt asymptomatic -testicular and scrotal exam reassuring, no indication for diagnostics at this time Transaminitis (mild) -repeat LFTs in 24-48 hours and monitor for resolve -avoid hepatotoxic medications Eczema, chronic -noted plaques on both feet and hydrocortisone 1% ordered b.i.d. -recommend outpatient follow-up with cinder block mason and/or metal numerical control programmer Asthma -albuterol rescue inhaler ordered as needed -no indication for chest x-ray at this time Anaphylaxis to shellfish -EpiPens are located on the floor for emergent issues as needed -allergies also updated for environmental sources including pollen, cats and dogs Thank you for this consultation. Hospitalist group will sign off at this time. Please reconsult with any further concerns or need for further recommendations. 07/04/24- Increase Risperdal to 2 mg bid Will complete paperwork for mother who is filing for community guardianship. Hospitalist consult appreciated. Discuss PARIKH with pt and family 07/05/24- DC Risperdal Haldol 10 mg x 1 Haldol 5 mg tid to work on sx of fear 07/06/24- doing better on haldol - check hepatitis panel 07/07 CTP encouraged setting boundaries- hep panel pending 07/15: Patient reports feeling good and better ; pt stated, I feel like the meds are helping. I feel like I can breathe . denies SI/HI/VH/AH. Patient reports he has been trying to attend groups. Continue current tx plan. Patient educated on: diagnosis and medication risk/benefits Reason for continued inpatient stay Substantial Risk for: med/psych decompensation Time Spent With Patient Time: Total time managing care of this patient today _20___ minutes.
[2024-07-15 19:49] VITALS: BP 117/59; PULSE 95; TEMP 36.4; O2SAT 97
[2024-07-15] MEDS: Mirtazapine 15 MG TABLET PO (20:28)
[2024-07-15] MEDS: Hydrocortisone 1 % Cream 28.35 GM TUBE 1 APPL TOPICAL (20:29)
[2024-07-16 07:58] VITALS: BP 171/83; PULSE 83; RESP 18; TEMP 36.5; O2SAT 97
[2024-07-16 08:10] VITALS: BP 139/76
[2024-07-16] MEDS: HaloperidoL 5 MG TABLET 15 MG PO ×2 (08:37→20:48)
[2024-07-16] MEDS: Benztropine Mesylate 1 MG TABLET PO ×2 (08:38→20:48)
[2024-07-16] MEDS: Divalproex Sodium ER 500 MG TAB.ER.24H PO (08:38)
[2024-07-16] MEDS: Hydrocortisone 1 % Cream 28.35 GM TUBE 1 APPL TOPICAL (08:39)
--- NOTE | 2024-07-16 10:07 | HO.PSYCHPN ---
Subjective Subjective Date of Service: 07/16/24 Reason For Visit: Schizophrenia, Cannabis use disorder Subjective Notes: 3 Day Healthcare Proxy: No Guardianship: Yes (mother is in the process) Medical Problems Affecting Mental Status: No Interim History: Pt tells team he was feeling oversedated with regime, along with TARAS (4am). Depakote changed to 750 mg ER HS. Met with pt and mother to prepare for discharge. Updated medical certificate as mother is proceeding for guardinship (pt is aware and is in agreement). Reports fear today is decreased, yet still present. Overall feeling improved. Discussed mechanism of action with medications. Medication Compliance: Yes Side effects from medications: No Attending Groups: Yes Review of Systems Acute medical concerns: No Medical Review of Systems: unchanged Review of Systems Review of Systems Denies Mental Status Exam Mental Status Exam Patient Appearance: Appropriate Patient Orientation: Person, Place, Time and Situation Level of Consciousness: Awake and Appropriate Patient Behavior: Passive and Good Eye Contact Mood Description: Calm and Appropriate Affect Description: Calm and Appropriate Patient Cognition Impaired: No Ability to Follow Directions: Good Speech Pattern: Clear Memory Description: Intact and Episodic Impaired Hallucinations: None Thought Process: Intact and Goal Oriented Thought Content: positive for [place] and positive for Circumstantial Depressive Symptoms: Increased Anxiety (appears decreased today) Judgement: Good Diagnostics Vital Signs (24Hr): Vital Signs - 24 hr 07/15/24 19:49 07/16/24 07:58 07/16/24 08:10 Temperature 97.5 F 97.7 F Pulse Rate 95 83 Respiratory Rate 18 Blood Pressure 117/59 L 171/83 H 139/76 Pulse Oximetry 97 97 Oxygen Delivery Method Room Air Room Air BMI result Body Mass Index 35.4 Labs 07/01/24 21:31 07/01/24 21:31 Imaging Radiology Impressions: ITS Impressions Scrotum Ultrasound 07/10/24 16:06 IMPRESSION: 1. Testicular microlithiasis identified bilaterally. 2. Otherwise normal bilateral testicular ultrasound. Electronically signed by: Chicho Montez MD 07/10/2024 04:34 PM EDT RP Scrotum Ultrasound 07/10/24 16:06 IMPRESSION: 1. Testicular microlithiasis identified bilaterally. 2. Otherwise normal bilateral testicular ultrasound. Electronically signed by: Chicho Montez MD 07/10/2024 04:34 PM EDT RP Medications Medications Current Medications Acetaminophen (Acetaminophen 325 Mg Tablet) 650 mg PO Q6H PRN PRN Reason: Headache/Pain, Scale 1-10 Last Admin: 07/13/24 20:54 Dose: 650 mg Al Hydroxide/Mg Hydroxide (Magnesium Hydrox/Alum Hydrox 30 Ml Oral.Susp) 30 ml PO Q6H PRN PRN Reason: Heartburn/Nausea Last Admin: 07/05/24 10:56 Dose: 30 ml Albuterol Sulfate (Albuterol Sulfate 90 Mcg 8 Gm Inhaler) 2 puff INHALE RQ6H PRN PRN Reason: Shortness of Breath/Wheezing Last Admin: 07/15/24 06:05 Dose: 2 puff Benztropine Mesylate (Benztropine Mesylate 1 Mg Tablet) 1 mg PO BID [facility] Last Admin: 07/16/24 08:38 Dose: 1 mg Divalproex Sodium (Divalproex Sodium Er 500 Mg Tab.Er.24h) 500 mg PO BID [facility] Last Admin: 07/16/24 08:38 Dose: 500 mg Haloperidol (Haloperidol 5 Mg Tablet) 15 mg PO BID [facility] Last Admin: 07/16/24 08:37 Dose: 15 mg Hydrocortisone (Hydrocortisone 1 % Cream 28.35 Gm Tube) 1 appl TOPICAL BID [facility]; Protocol Last Admin: 07/16/24 08:39 Dose: 1 appl Hydroxyzine HCl (Hydroxyzine Hcl 25 Mg Tablet) 25 mg PO Q6H PRN PRN Reason: mild anxiety Last Admin: 07/13/24 14:27 Dose: 25 mg Lorazepam (Lorazepam 1 Mg Tablet) 2 mg PO Q4H PRN PRN Reason: anxiety/restlessness Last Admin: 07/15/24 04:50 Dose: 2 mg Magnesium Hydroxide (Milk Of Magnesia 30 Ml Oral.Susp) 30 ml PO DAILY PRN PRN Reason: Constipation Mirtazapine (Mirtazapine 15 Mg Tablet) 15 mg PO BEDTIME [facility] Last Admin: 07/15/24 20:28 Dose: 15 mg Nicotine Polacrilex (Nicotine Polacrilex 2 Mg Gum) 4 mg BUCCAL Q2H PRN PRN Reason: Nicotine Cravings Olanzapine (Olanzapine 5 Mg Tablet) 5 mg PO Q4H PRN PRN Reason: agitation; psychosis Last Admin: 07/13/24 14:27 Dose: 5 mg Allergies Allergies Allergy/AdvReac Type Severity Reaction Status Date / Time cat dander Allergy Intermediate Runny Nose Verified 07/03/24 22:30 dog dander Allergy Intermediate Runny Nose Verified 07/03/24 22:30 pollen extracts Allergy Intermediate Itchy Eyes Verified 07/03/24 22:30 shellfish derived [shellfish] Allergy Anaphylaxis Verified 07/01/24 21:16 Assessment & Plan Assessment & Plan (1) Chronic schizophrenia: Status: Acute Code(s): F20.9 - Schizophrenia, unspecified (2) Eczema: Status: Acute Code(s): L30.9 - Dermatitis, unspecified (3) Cannabis dependence: Status: Acute Code(s): F12.20 - Cannabis dependence, uncomplicated Plan Patient is a 28-year-old male with past medical history of eczema, asthma and anaphylaxis with shellfish as well as allergies to pollen, cats, dogs and marijuana use daily was seen on the psychiatric unit for concerns of hypertension and testicular pain. Blood pressure has normalized to 116/64 and examination and interview with patient notes resolve of previous testicular pain experienced in the emergency department. Exam also reassuring. Hypertension -Blood pressure has stabilized to 116/64, monitor Q shift -No intervention required at this time -Follow-up with PCP in the outpatient setting Testicular pain, resolved on exam -UA with reflex ordered noting a mild leukocytosis of 11.7 on 07/01 -re-consult hospitalist if UA or culture are positive -recommend screen for chlamydia and gonorrhea via urine sample to rule out only, pt asymptomatic -testicular and scrotal exam reassuring, no indication for diagnostics at this time Transaminitis (mild) -repeat LFTs in 24-48 hours and monitor for resolve -avoid hepatotoxic medications Eczema, chronic -noted plaques on both feet and hydrocortisone 1% ordered b.i.d. -recommend outpatient follow-up with wireless sales expert and/or hospice art therapist Asthma -albuterol rescue inhaler ordered as needed -no indication for chest x-ray at this time Anaphylaxis to shellfish -EpiPens are located on the floor for emergent issues as needed -allergies also updated for environmental sources including pollen, cats and dogs Thank you for this consultation. Hospitalist group will sign off at this time. Please reconsult with any further concerns or need for further recommendations. 07/04/24- Increase Risperdal to 2 mg bid Will complete paperwork for mother who is filing for community guardianship. Hospitalist consult appreciated. Discuss PARIKH with pt and family 07/05/24- DC Risperdal Haldol 10 mg x 1 Haldol 5 mg tid to work on sx of fear 07/06/24- doing better on haldol - check hepatitis panel 07/07 CTP encouraged setting boundaries- hep panel pending 07/15: Patient reports feeling good and better ; pt stated, I feel like the meds are helping. I feel like I can breathe . denies SI/HI/VH/AH. Patient reports he has been trying to attend groups. Continue current tx plan. 07/16: Discharge 07/17 on a three day notice of intent. Pt reports feeling improved. Reason for continued inpatient stay Substantial Risk for: stable for discharge Time Spent With Patient Time: Total time managing care of this patient today ____ minutes.
[2024-07-16 20:05] VITALS: BP 119/67; PULSE 99; TEMP 36.4; O2SAT 95
[2024-07-16] MEDS: Divalproex Sodium ER 250 MG TAB.ER.24H 750 MG PO (20:47)
[2024-07-16] MEDS: Mirtazapine 15 MG TABLET PO (20:48)
[2024-07-16] MEDS: Magnesium Hydrox/Alum Hydrox 30 ML ORAL.SUSP PO (21:09)
[2024-07-17] MEDS: Magnesium Hydrox/Alum Hydrox 30 ML ORAL.SUSP PO (06:33)
[2024-07-17 08:22] LABS: Valproate 75.3 mcg/mL (50.0-100.0)
[2024-07-17] MEDS: HaloperidoL 5 MG TABLET 15 MG PO (09:36)
[2024-07-17 09:38] VITALS: BP 144/91; PULSE 86; TEMP 36.8; O2SAT 97
--- NOTE | 2024-07-17 10:03 | P.DS_ITS ---
DS: Providers Provider Date of admission: 07/02/24 15:53 Primary care physician: None Physician Consults: 07/03/24 16:35 Consult to Hospitalist Routine Comment: Consulting Provider: [facility] Hospitalists Reason For Exam: HTN, Pt reports pain in right testicle 07/10/24 09:08 Consult to Urology Routine Consulting Provider: [facility] Urology Services Reason for consultation: Testicular pain-pt very concerned Has provider been notified: No DS: Diagnosis Discharge Diagnosis (1) Chronic schizophrenia: Status: Acute (2) Eczema: Status: Acute (3) Cannabis dependence: Status: Acute DS: Medications Discharge Medications Home Medications: Previous Rx's ?Medication ?Instructions ?Recorded acetaminophen 325 mg tablet 650 mg (2 x 325 mg) PO Q6H PRN 07/16/24 Headache/Pain, Scale 1-10 #0 tabs albuterol sulfate 90 mcg/actuation 1 puff inhalation Q6H PRN wheezing 07/16/24 aerosol inhaler (Ventolin HFA) #1 inhaler benztropine 1 mg tablet 1 mg PO BID #60 tabs 07/16/24 divalproex 250 mg tablet,extended 750 mg (3 x 250 mg) PO BEDTIME #90 07/16/24 release 24 hr tabs haloperidol 5 mg tablet 15 mg (3 x 5 mg) PO BID #180 tabs 07/16/24 hydrocortisone 1 % topical cream 1 appl topical BID #28 grams 07/16/24 mirtazapine 15 mg tablet 15 mg PO BEDTIME #30 tabs 07/16/24 Data Data Completed and Pending Completed studies during hospitalization [Text1]: 07/17/24 07:50 Valproic Acid 75.3 Imaging Diagnostic Imaging Impressions Scrotum Ultrasound 07/10/24 16:06 IMPRESSION: 1. Testicular microlithiasis identified bilaterally. 2. Otherwise normal bilateral testicular ultrasound. Electronically signed by: Chicho Montez MD 07/10/2024 04:34 PM EDT RP Scrotum Ultrasound 07/10/24 16:06 IMPRESSION: 1. Testicular microlithiasis identified bilaterally. 2. Otherwise normal bilateral testicular ultrasound. Electronically signed by: Chicho Montez MD 07/10/2024 04:34 PM EDT RP DS: Summary Time Spent with Patient Time attestation: Total time managing care of this patient today ____ minutes. Discharge Plan Discharge Anticipated Discharge Date/Time: 07/17/24 11:00 Patient Disposition: Home, Self-Care Discharge Diagnosis: Schizoaffective Disorder, Bipolar Type Cannabis Use Disorder Referrals: [facility] [Other] - 3-5 Days (Call the number to self refer. [facility] offers comprehensive outpatient treatment for young adults between the ages of 16 to 30 years old who have had an experience of psychosis within the previous three years. [facility] offers comprehensive outpatient treatment for individuals age 16-30, and their families, including: - Groups provide the basis for community-building and peer support Participants also get to know each other through activities such as cooking and socializing - Individual therapy gives participants the opportunity to build a meaningful relationship with a professional therapist - Psychiatric Services works with participants who may be prescribed medication to help calm uncomfortable experiences - Family and Network Meetings are held with the [facility] team, participant, and his or her family to discuss difficult topics and discover new ways of moving forward.) [facility] [Other] - 3-5 Days (With [facility] [employer] [facility], you can explore different industries, identify career goals, and find a job that fits your needs. Services include counseling, guidance, skills training, placement assistance, and employer consultation. If you're ready to begin your professional journey, [employer] is your first step.) Physician,None [Primary Care Provider] - 1 Week Discharge Medications: New acetaminophen 325 mg Tablet 650 mg PO Q6H PRN (Reason: Headache/Pain, Scale 1-10) Qty: 0 0RF hydrocortisone 1 % Cream 1 appl topical BID Qty: 28 0RF Protocol: Apply to: Apply to: top of both feet benztropine 1 mg Tablet 1 mg PO BID Qty: 60 0RF mirtazapine 15 mg Tablet 15 mg PO BEDTIME Qty: 30 0RF divalproex 250 mg Tablet Extended Release 24 Hr 750 mg PO BEDTIME Qty: 90 0RF haloperidol 5 mg tablet 15 mg PO BID Qty: 180 0RF Continued albuterol sulfate [Ventolin HFA] 90 mcg/actuation HFA aerosol inhaler 1 puff INHALATION Q6H PRN (Reason: wheezing) Qty: 1 0RF Discontinued escitalopram oxalate 5 mg tablet 5 mg PO DAILY Discharge Orders: Discharge Order (Routine); Ordered 07/17/24 Ordered By: Shannan Joy Diet: Advance to usual diet Activity on Discharge: As tolerated Stand Alone Forms: Patient Portal Discharge page Print Language: Ukrainian Care Plan Goals: Mood and Behavioral Stabilization Abstinence from Substances Health Concerns: Mood and Behavioral Stabilization Abstinence from Substances Plan of Treatment: Attend scheduled appointments Call/Return as needed Take medications as directed Assessment: No SI,HI, AH,VH. Pt has insight and plans to continue treatment as an out pt. Mother will proceed for guardianship, which pt agrees with.
[2024-07-17] MEDS: Albuterol Sulfate 90 MCG 8 GM INHALER 2 PUFF INHALE (10:25)
[2024-07-17] MEDS: Benztropine Mesylate 1 MG TABLET PO (10:26)
== END 2024-07-17 12:10 | disposition home or self-care (01) | DRG 750 ==
LOC: HO.ED 21:50 → HO.PM5 07-02 15:59
PROVIDERS: Nurse Practitioner Family; Psychiatry & Neurology Psychiatry; Admitting Provider Clinical Nurse Specialist Psychiatric/Mental Health, Adult; Emergency Provider Emergency Medicine; Visit Provider Clinical Nurse Specialist Psychiatric/Mental Health, Adult
DX: F20.9 Schizophrenia, unspecified (principal); F12.20 Cannabis dependence, uncomplicated; N50.811 Right testicular pain; G89.29 Other chronic pain; J45.909 Unspecified asthma, uncomplicated; I10 Essential (primary) hypertension; L30.9 Dermatitis, unspecified; Z91.013 Allergy to seafood; Z87.892 Personal history of anaphylaxis
CPT/HCPCS: 36415; 76870; 80053; 80061; 80076; 80164; 80307; 81001; 81003; 82607; 82746; 83036; 83735; 84439; 84443; 85025; 86704; 86706; 86709; 86803; 87340; 87491; 87591; 93005; 93975; 99285; S9485

== ENCOUNTER → 2024-07-02 08:21 | Outpatient (BNV) | payer MEDICAID, SELFPAY | PROVIDERS: Admitting Provider Clinical Nurse Specialist Psychiatric/Mental Health, Adult; Emergency Provider Emergency Medicine; Visit Provider Internal Medicine Cardiovascular Disease | DX: R94.31 Abnormal electrocardiogram [ECG] [EKG] (principal); Z13.6 Encounter for screening for cardiovascular disorders | CPT/HCPCS: 93010 ==

== ENCOUNTER 2024-07-02 15:53 | Outpatient (BNV) | payer MEDICAID, SELFPAY | END 2024-07-10 16:06 | PROVIDERS: Admitting Provider Clinical Nurse Specialist Psychiatric/Mental Health, Adult; Emergency Provider Emergency Medicine; Visit Provider Radiology Diagnostic Radiology | DX: N50.811 Right testicular pain (principal) | CPT/HCPCS: 76870; 93975 ==

== ENCOUNTER → 2024-07-02 15:53 | Outpatient (BNV) | payer MEDICAID, SELFPAY | PROVIDERS: Admitting Provider Clinical Nurse Specialist Psychiatric/Mental Health, Adult; Emergency Provider Emergency Medicine; Visit Provider Urology | DX: N50.811 Right testicular pain (principal) | CPT/HCPCS: 99222; 99232 ==

== ENCOUNTER → 2024-07-02 15:53 | Outpatient (BNV) | payer MEDICAID, SELFPAY | PROVIDERS: Admitting Provider Clinical Nurse Specialist Psychiatric/Mental Health, Adult; Emergency Provider Emergency Medicine; Visit Provider Nurse Practitioner Family | DX: L30.9 Dermatitis, unspecified (principal) | CPT/HCPCS: 99222 ==

== ENCOUNTER → 2024-07-02 15:53 | Outpatient (BNV) | payer OTHER, SELFPAY | PROVIDERS: Admitting Provider Clinical Nurse Specialist Psychiatric/Mental Health, Adult; Emergency Provider Emergency Medicine; Visit Provider Clinical Nurse Specialist Psychiatric/Mental Health, Adult | DX: F20.9 Schizophrenia, unspecified (principal); F12.20 Cannabis dependence, uncomplicated; N50.811 Right testicular pain | CPT/HCPCS: 99231; 99232 ==

== ENCOUNTER 2024-07-30 15:59 | Outpatient (REF) | payer MEDICAID, SELFPAY ==
[2024-07-30 18:21] LABS: CT PCR NOT DETECTED (Not Detect.); NG PCR NOT DETECTED (Not Detect.)
== END 2024-07-30 16:00 | disposition home or self-care (01) ==
LOC: HO.HHCLNP 15:59
PROVIDERS: Visit Provider Nurse Practitioner Primary Care
DX: N50.811 Right testicular pain (principal)
CPT/HCPCS: 87491; 87591

== ENCOUNTER 2024-09-02 13:41 | Outpatient (REF) | payer MEDICAID, SELFPAY ==
--- OUTSIDE RECORDS SUMMARY | 2024-09-02 14:12 | XMS_ITS | Clinical Summary ---
Author Organization [facility] Address [address] [place] [address] Phone Care Team Providers Care Continuous Pillowcase Cutter Name Role Phone Physician, No Pcp Primary Care Provider Unavaila ble Allergies No known active allergies Medications ibuprofen (ADVIL,MOTRIN) 600 mg tablet Take 1 tablet (600 mg total) by mouth every 6 (six) hours if needed for mild pain. 30 tablet 02/01/2024 Active Active Problems No known active problems Social History Tobacco Use Types Packs/Day Years Used Date Smoking Tobacco: Unknown Tobacco Cessation:Counseling Given: Not Answered Sex and Gender Information Value Date Recorded Sex Assigned at Not on file Legal Sex Male 6:34 AM EST Gender Identity Not on file Sexual Orientation Not on file Obstetrics History Last Filed Vital Signs Vital Sign Reading Time Taken Comments Blood Pressure 124/99 02/01/2024 12:03 PM EST Pulse 89 02/01/2024 12:03 PM EST Temperature 36.8 C (98.3 F) 02/01/2024 12:03 PM EST Respiratory Rate 18 02/01/2024 12:03 PM EST Oxygen Saturation 100% 02/01/2024 12:03 PM EST Inhaled Oxygen Concentration - - Weight 113 kg (250 lb) 02/01/2024 12:33 PM EST Height 180.3 cm (5' 11 ) 02/01/2024 12:33 PM EST Body Mass Index 34.87 02/01/2024 12:33 PM EST Plan of Treatment Health Maintenance Due Date Last Done Comments HPV Vaccines (3 - Male 3-dose series) 11/02/2015 08/10/2015, 08/28/2013 Cholesterol Screening (Lipid Panel) 10/31/2023 Social Influencers of Health Screening 10/31/2023 COVID-19 Vaccine ( season) 2023 Depression Screening 10/26/2024 10/27/2023 Influenza Vaccine (Season Ended) 2024 12/07/2011, 12/22/2010, 11/23/2009, Additional history exists DTaP,Tdap,and Td Vaccines (8 - Td or Tdap) 01/29/2029 01/29/2019, 11/18/2008, 07/26/2002, Additional history exists HIB Vaccines Aged Out 10/28/1998 No longer eligi ble based on patient's age to complete this topic Hepatitis B Vaccines Completed 10/28/1998, 05/26/1998, 02/03/1998 IPV Vaccines Completed 07/26/2002, 07/05, 05/26/1998, Additional history exists MMR Vaccines Completed 07/26/2002, 12/10/1998 Hepatitis A Vaccines Completed 01/25/2008, 07/24/19 08 Varicella Vaccines Completed 11/23/2009, 12/05/1998 Meningococcal ACWY Vaccine Completed 08/10/2015, HIV Screening Completed 01/30/2023 Hepatitis C Screening Completed 01/30/2023 Meningococcal B Vaccine Aged Out No l onger eligible based on patient's age to complete this topic Pneumococcal Vaccine: Pediatrics (0 to 5 Years) and At-Risk Patients (6 to 64 Years) Aged Out No longer eligible based on patient's age to complete this topic RSV Immunization Patients Under 20 months Aged Out No longer eligible based on patient's age to complete this topic Insurance [place] Care Teams Continuous Pillowcase Cutter Relationship Specialty Start Date End Date Physician, No Pcp PCP - General 02/01/24
--- OUTSIDE RECORDS SUMMARY | 2024-09-02 14:12 | XMS_ITS | Encounter Summary ---
Author Organization [employer] Address [address] [facility] 7t [place] [address] Care Team Providers Care Water Valve Mechanic Name Role Phone Shelli Espinosa NP Primary Care Provider [phone] Encounter Details Date Type Department Care Team (Latest Contact Info) Description 09/02/2024 Travel Social History Tobacco Use Types Packs/Day Years Used Date Smoking Tobacco: Never Passive Smoke Exposure: Never Smokeless Tobacco: Never Alcohol Use Standard Drinks/Week Comments Never 0 (1 standard drink = 0.6 oz pur e alcohol) Depression Answer Date Recorded Patient Health Questionnaire-9 Score 20 10/27/2023 Patient Health Questionnaire-9 Score 20 10/27/2023 Last PHQ-9: Questionnaire Data Not on file 0 10/27/2023 Housing Stability Answer Date Recorded What is your housing situation today? I have [place] patel 10/27/[address] you li ve. Do you have problems with any of the following? None of the above 10/27/2023 Food Insecurity Answer Date Recorded Within the past 12 months, y ou worried that your food would run out before you got money to buy more: Sometimes True 2024 Within the past 12 months,th e food you bought just didn't last and you didn't have enough money to get more: Sometimes True 08/05/2024 Transportation Answer Date Recorded In the past 12 months, has l ack of transportation kept you from medical appts, meetings, work or from getting things needed for daily living? Yes, it has kept me from medical appointments or getting medications. 08/05/2024 Intimate Partner Violence Answer Date R ecorded Within the last year, have y ou been afraid of your partner or ex-partner? 2 08/27/2024 Within the last year, have y ou been humiliated or emotionally abused in other ways by your partner or ex-partner? 2 Within the last year, have y ou been kicked, hit, slapped, or otherwise physically hurt by your partner or ex-partner? 2 08/27/2024 Within the last year, have y ou been raped or forced to have any kind of sexual activity by your partner or ex-partner? 2 08/27/2024 Utilities Answer Date Recorded In the past 12 months, has t he electric, gas, oil or water company threatened to shut off services in your home? No 10/27/2023 Depression Answer Date Recorded Patient Health Questionnaire-2 Score 6 08/27/2024 Internet Access Answer Date Recorded Internet Access Q1 Yes 11/06/2023 Internet Access Q2 Not on file 11/06/2023 Sex and Gender Information Value Date Recorded Sex Assigned at Male 01/30/2023 9:24 AM EST Legal Sex Male 12:04 PM EST Gender Identity Male 01/30/2023 9:24 AM EST Sexual Orientation Don't know 01/30/2023 9: 24 AM EST documented as of this encounter Plan of Treatment Upcoming Encounters Date Type Department Care Team (Late st Contact Info) Description 11/18/2024 9:00 AM EDT Office Visit [facility] [address] [place] [address] Shelli Espinosa NP [address] [place] [address] documented as of this encounter Visit Diagnoses Not on filedocumented in this encounter Additional Health Concerns Assessment Noted Time PHQ-9 Depression Total Score: 20 024 4:21 PM EDT documented as of this encounter Care Teams Water Valve Mechanic Relationship Specialty Start Date End Date Shelli Espinosa NP [address] [place] [address] PCP - General Family Medicine 08/04/23 documented as of this encounter
[2024-09-02 16:06] LABS: MANUAL DIFF FLAG NO
[2024-09-02 16:10] LABS: Basophils Percent Auto 0.5 % (0-2); Eosinophils Absolute Auto 0.2 X10*3/uL (0.0-0.4); Eosinophils Percent Auto 2.8 % (0-4); Hematocrit 43.9 % (42.0-52.0); Hemoglobin 14.6 g/dl (14.0-18.0); Imm Gran Abs Auto 0.02 X10*3/uL (0.00-0.03); Imm Gran Pct Auto 0.3 % (0.0-0.4); Lymphocytes Absolute Auto 3.1 X10*3/uL (1.2-4.9); Lymphocytes Percent Auto 41.7 % (20-40); Mean Corpuscular HGB Conc 33.3 g/dl (31.0-36.0); Mean Corpuscular Hemoglobin 27.8 pg (27.0-33.0); Mean Corpuscular Volume 83.5 fL (80.0-98.0); Monocytes Absolute Auto 0.8 X10*3/uL (0.1-1.2); Monocytes Percent Auto 10.3 % (2-11); Neutrophils Absolute Auto 3.3 x10*3/uL (2.0-8.3); Neutrophils Percent Auto 44.4 % (45-73); Platelet Count 206 X10*3/uL (160-400); Red Blood Count 5.26 X10*6/uL (4.60-5.80); Red Cell Distribution Width 11.9 % (11.0-16.0); White Blood Count 7.5 X10*3/uL (4.8-10.8)
[2024-09-02 16:18] LABS: Estimated Average Glucose 105 mg/dL; Hemoglobin A1c % 5.3 % (<6.0)
== END 2024-09-02 13:42 | disposition home or self-care (01) ==
LOC: HO.HHCL 13:41
PROVIDERS: PCP Nurse Practitioner Family; Visit Provider Nurse Practitioner Family
DX: R63.0 Anorexia (principal)
CPT/HCPCS: 36415; 83036; 85025

== ENCOUNTER 2024-09-19 10:38 | Outpatient (REF) | payer MEDICAID, SELFPAY ==
--- OUTSIDE RECORDS SUMMARY | 2024-09-19 11:13 | XMS_ITS | Encounter Summary ---
Author Organization [employer] Address [address] [facility] 7t [place] [address] Care Team Providers Care Stenographic Court Reporter Name Role Phone Shelli Espinosa NP Primary Care Provider [phone] Reason for Visit * Reason Comments Med Refill Encounter Details Date Type Department Care Team (Late st Contact Info) Description 08/12/2024 Refill [facility] [address] [place], [place] [phone] Shelli Espinosa NP [address] [place], [place] [phone] Social History Tobacco Use Types Packs/Day Years [...] from medical appointments or getting medications. 08/05/2024 Utilities Answer Date Recorded In the past 12 months, has t he electric, gas, oil or water company threatened to shut off services in your home? No 10/27/2023 Depression Answer Date Recorded Patient Health Questionnaire-2 Score 5 10/27/2023 Internet Access Answer Date Recorded Internet Access [...] Description 11/18/2024 9:00 AM EDT Office Visit [facility] [address] [place] [address] Shelli Espinosa NP [address] [place] [address] documented as of this encounter Visit Diagnoses Not on filedocumented in this encounter Additional Health Concerns Assessment Noted Time PHQ-9 Depression Total Score: 20 024 4:21 PM EDT documented as of this encounter Care Teams Stenographic Court Reporter Relationship Specialty Start Date End Date Shelli Espinosa NP [address] [place] [address] PCP - General Family Medicine 08/04/23 documented as of this encounter
--- OUTSIDE RECORDS SUMMARY | 2024-09-19 11:13 | XMS_ITS | Clinical Summary ---
Author Organization [facility] Address [address] [place] [address] Phone Care Team Providers Care Preservationist Name Role Phone Physician, No Pcp Primary [...] 2023 Depression Screening 10/26/2024 10/27/2023 Influenza Vaccine (#1) 2024 2, 12/22/2010, 11/23/2009, Additional history exists DTaP,Tdap,and Td [...] 5 Years) and At-Risk Patients (6 to 49 Years) Aged Out No longer eligible based on patient's age to complete this topic RSV Immunization Patients Under 20 months Aged Out No longer eligible based on patient's age to complete this topic Insurance MEDICAID - [place] Care Teams Preservationist Relationship Specialty Start Date End Date Physician, No Pcp PCP - General 02/01/24
[2024-09-19 11:52] LABS: Appearance Urine Clear; Glucose Urine UA Negative (Negative); PH 6.5 (5.0-9.0); Specific Gravity - Urine 1.020 (1.005-1.025)
== END 2024-09-19 10:39 | disposition home or self-care (01) ==
LOC: HO.HHCL 10:38
PROVIDERS: PCP Nurse Practitioner Family; Visit Provider Nurse Practitioner Primary Care
DX: N50.811 Right testicular pain (principal)
CPT/HCPCS: 81001

== ENCOUNTER 2024-10-14 14:06 | Outpatient (REF) | payer MEDICAID, SELFPAY ==
--- NOTE | ~2024-10-14 | US_ITS ---
EXAMINATION: US SCROTUM HISTORY: right testicular pain. COMPARISON: Comparison is made with the prior examination dated 07/10/2024. FINDINGS: Real-time grayscale ultrasound imaging of the scrotum was performed. RIGHT TESTICLE: The right testis measures 4.1 x 2.1 x 2.8 cm and demonstrates normal homogeneous echotexture. No masses are seen. The right testis demonstrates normal color Doppler flow. RIGHT EPIDIDYMIS: Normal in size, shape, and vascularity. LEFT TESTICLE: The left testis measures 4.2 x 2.1 x 3.3 cm and demonstrates normal homogeneous echotexture. No masses are seen. The left testis demonstrates normal color Doppler flow. LEFT EPIDIDYMIS: Normal in size, shape, and vascularity. VARICOCELE: None. HYDROCELE: No significant hydrocele is seen. OTHER COMMENTS: None. US/US scrotum IMPRESSION: Unremarkable scrotal ultrasound. Electronically signed by: Praveen Culver MD 10/14/2024 03:07 PM EDT
--- OUTSIDE RECORDS SUMMARY | 2024-10-14 14:35 | XMS_ITS | Clinical Summary ---
Author Organization [facility] Address [address] [place] [phone] Phone Care Team Providers Care Stripper And Opaquer Apprentice Name Role Phone Pcp, Not Required Primary Care Provider Unavaila ble Allergies Active Allergy Reactions Criticality Noted Date Comments Latex 08/02/2023 Medications acetaminophen (TYLENOL) 500 MG tablet Take 1,000 mg by mouth every 6 (six) hours as needed. 4 Active VENTOLIN HFA 90 mcg/actuation inhaler Inhale 1 puff into the lungs every 6 (six) hours as needed. 4 02/06/20 25 Active azelastine (OPTIVAR) 0.05 % ophthalmic solution 1 drop. 5 09/03/19 26 Active benztropine (COGENTIN) 1 MG tablet Take 1 mg by mouth. 5 Active divalproex (DEPAKOTE ER) 250 MG ER 24 hr tablet Take 750 mg by mouth. 5 Active doxycycline hyclate (DORYX) 100 MG tablet 5 Active fluticasone furoate (ARNUITY ELLIPTA) 200 mcg/actuation DsDv Inhale 1 puff into the lungs. 4 02/06/20 25 Active haloperidoL (HALDOL) 5 MG tablet Take 15 mg by mouth. 5 Active hydrocortisone 1 % cream Apply topically daily. 5 Active ibuprofen (ADVIL,MOTRIN) 600 MG tablet TAKE 1 TABLET BY MOUTH THREE TIMES DAILY WITH FOOD FOR 1 WEEK THEN NEEDED UP TO 3 TIMES DAILY Active mirtazapine (REMERON) 15 MG tablet Take 15 mg by mouth. Active triamcinolone acetonide 0.1 % ointment Mix with Cerave ointment and apply to skin BID 5 Active Encounters Date Type Department Care Team Description 10/08/2024 Refill [facility] [place] [address] [address] Suzie Moore MD, PhD Medication Refill 10/04/2024 10:00 AM EDT Office Visit [facility] [place] [address] [address] Suzie Moore MD, PhD Unstable keratoconus of both eyes (Primary Dx); Research study patient from Last 3 Months Social History Tobacco Use Types Packs/Day Years Used Date Smoking Tobacco: Never Assessed Education Answer Date Recorded Are you interested in more education? Not on danie e 02/13/2024 Are you concerned about learning? Not on file 02/13/2024 No 02/13/2024 No 02/13/2024 Digital Access Answer Date Recorded No 02/13/2024 No 02/13/2024 Reliable internet access at home? Not on file 02/13/2024 Device with a working camera? Not on file Sex and Gender Information Value Date Recorded Sex Assigned at Not on file Legal Sex Male 9:44 AM EST Gender Identity Not on file Sexual Orientation Not on file Plan of Treatment Upcoming Encounters Date Type Department Care Team (Late st Contact Info) Description 12/05/2024 8:00 AM EDT Procedure visit [facility] [place] [address] [facility] [address] [place] [address] Suzie Moore MD, PhD [address] [place] [phone] [email or web address] 12/10/2024 2:45 PM EDT Office Visit [facility] [place] [address] [place] [address] Suzie Moore MD, PhD [address] [place] [address] [place] [phone] [email or web address] 01/09/2025 8:00 AM EST Procedure visit [facility] [place] [address] [facility] [address] [place] [address] Suzie Moore MD, PhD [address] [place] [phone] [email or web address] 01/14/2025 1:15 PM EST Office Visit [facility] [place] [address] [place] [address] Suzie Moore MD, PhD [address] [place] [phone] [email or web address] 02/14/2025 1:00 PM EST Office Visit [facility] [address] [address] Suzie Moore MD, PhD [address] [place] [phone] [email or web address] 03/21/2025 1:30 PM EST Office Visit [facility] [address] [address] Suzie Moore MD, PhD [address] [place] [id number] [email or web address] 04/11/2025 8:15 AM EST Office Visit [facility] [address] [address] Suzie Moore MD, PhD [address] [place] [phone] [email or web address] Health Maintenance Due Date Last Done Comments VALPROIC ACID (DEPAKENE) LEVEL 1997 DEPRESSION SCREENING 2009 SMOKING Hx and SMOKELESS TOBACCO SCREENING 2010 HPV VACCINES (1 - Male 3-dos e series) 2012 HEPATITIS C SCREENING 11/16/2015 HIV ONE-TIME SCREENING (18-6 5 YEARS) 11/16/2015 COVID-19 VACCINE ( - 2023-2 5 season) 2023 Adult Td,Tdap Booster 01/29/2029 01/29/2019 , 11/18/2008 HEPATITIS A VACCINES Aged Out No long er eligible based on patient's age to complete this topic HIB VACCINES Aged Out No longer eligi ble based on patient's age to complete this topic MENINGOCOCCAL VACCINES (ACWY) Aged Out No longer eligible based on patient's age to complete this topic MENINGOCOCCAL VACCINES (B) Aged Out N o longer eligible based on patient's age to complete this topic PNEUMOCOCCAL VACCINES (0-49 years) Aged Out No longer eligible b ased on patient's age to complete this topic Medical Devices Not on file Procedures Procedure Name Priority Date/Time Associated Diagnosis Comments CORNEAL TOPOGRAPHY - OU - BOTH EYES Routine 10/04/2024 10:09 AM EDT Unstable keratoconus of both eyes from Last 3 Months Results * Corneal Topography - OU - Both Eyes (10/04/2024 10:09 AM EDT) Anatomical Region Laterality Modality Head Optical Coherenc e Tomography Narrative 10/04/2024 12:21 PM EDT Pentacam OD (quality: Y/Y): central steepening, thinning, elevation, Kmax 64.0, thinnest pachy 471 - c/w keratoconus OS: (quality: OK/OK): inf steepening, thinning, elevation, Kmax 51.8, thinnest pachy 494 - c/w keratoconus Correlate with clinical exam. Monitor for changes. us Suzie Moore MD, PhD OPHTHALMOLOGY IMAGING F inal Result from Last 3 Months Insurance [employer] [place] [address] [place] [address] [employer] [address] [place] [address] [facility] [place] [place] [id number] [facility] [place] [id number] [facility] [employer] Care Teams Stripper And Opaquer Apprentice Relationship Specialty Start Date End Date Pcp, Not Required [address] [place] [id number] PCP - General 09/02/24 Additional Source Comments The information contained in this document represents components of the legal health record. It is not the complete legal health record.[facility]
--- OUTSIDE RECORDS SUMMARY | 2024-10-14 14:35 | XMS_ITS ---
Author Organization [employer] Address [address] [place] [address] 7 [place] [address] Care Team Providers Care Refractive Surgeon Name Role Phone Shelli Espinosa NP Primary Care Provider [phone] CM Complex Status:Enrolled (Active) Start date:07/05/2024 Enrollment date:08/27/2024 Enrollment reason:[facility] Overview We received a referral for support from [facility] regarding C3 member. Patient admitted to [facility] [place] on 07/02/24. Please see cc'd email. Case Team Name Relationship Phone Huy Villanueva RN(Responsible Staff) Registered Karolina de la cruz [phone] Continued Care and Services Coordination
--- OUTSIDE RECORDS SUMMARY | 2024-10-14 14:35 | XMS_ITS | Clinical Summary ---
Author Organization [facility] Address [address] [place] [address] Phone Care Team Providers Care Car Designer Name Role Phone Physician, No Pcp Primary [...] COVID-19 Vaccine ( season) 2023 Depression Screening 03/06/2024 Influenza Vaccine (#1) 2024 2, 12/22/2010, 11/23/2009, [...] to complete this topic Insurance MEDICAID - [place] Care Teams Car Designer Relationship Specialty Start Date End Date Physician, No Pcp PCP - General 02/01/24
== END 2024-10-14 14:07 | disposition home or self-care (01) ==
LOC: HO.HMGCX 14:06
PROVIDERS: Absent Provider Nurse Practitioner Family; PCP Nurse Practitioner Family; Visit Provider Nurse Practitioner Primary Care
DX: N50.811 Right testicular pain (principal)
CPT/HCPCS: 76870

== ENCOUNTER → 2024-10-14 14:34 | Outpatient (BNV) | payer MEDICAID, SELFPAY | PROVIDERS: Absent Provider Nurse Practitioner Family; PCP Nurse Practitioner Family; Visit Provider Radiology Diagnostic Radiology | DX: N50.811 Right testicular pain (principal) | CPT/HCPCS: 76870 ==